=== PATIENT | female | born 1935 | race Caucasian/White ===

== ENCOUNTER 2018-12-23 14:41 | Emergency (ER) | payer MEDICARE, OTHER, MEDICAID ==
--- NOTE | 2018-12-23 15:29 | EDM.PDOC ---
ED HPI GENERAL MEDICAL PROBLEM - General Chief Complaint: Neurological Problem Stated Complaint: BRAIN BLEED Time Seen by Provider: 12/23/18 14:43 Source of Information: Reports: Patient, Family (2 daughters), RN Notes Reviewed History Limitations: Reports: Altered Mental Status (Patient confused due to dementia - she is essentially unable to contribute anything to her history) - History of Present Illness INITIAL COMMENTS - FREE TEXT/NARRATIVE: A stroke alert was called for this patient. The patient has moderate to severe dementia, and is unable to contribute to her history. Her past medical history is provided by her 2 daughters, who are at the bedside. 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 The patient was moved to [facility] in July of this year due to a diagnosis of dementia. She had been falling, but since July, the patient's frequency of falls has increased. She fell down some stairs on or about 12/13/2018 , striking her head. This past 12/19/2018, the patient became generally weak, and needed a wheelchair to be taken to the dining room. She fell Friday night, 12/20/2018, resulting in a knot to the back of her head. She fell out of bed Friday night, 12/21/2018, then twice again last night. Because of her declining condition, she was seen by her PCP yesterday. Blood work was done, and a CT scan of her head was ordered and performed today. The daughters were contacted by Ms. Hansen's office, instructing them to bring the patient to the ED, because the CT scan indicated that there was an intracranial bleed. We were notified by Ms. Hansen's office of their sending the patient to the ED, and a copy of the CT report has been faxed to us, along with the images. The CT report reads "Left parietal craniotomy changes with encephalomalacia in the left frontotemporal region. Linear area of high attenuation present in the area of encephalomalacia in the left frontal region may represent dystrophic calcifications versus blood products. Comparison with old films would be recommended. Chronic ischemic demyelination change. Soft tissue fullness, posterior right parietal region, could represent a contusion." Here in the ED, the patient has no complaints. When asked if she has a headache , she was not able to say. The patient's PCP is Katerin Hansen NP. - Related Data Allergies Allergy/AdvReac Type Severity Reaction Status Date / Time No Known Allergies Allergy Verified 12/23/18 14:59 Home Meds: Home Meds ALPRAZolam [Xanax] 1 mg PO DAILY 12/23/18 [History] Aspirin/Acetaminophen/Caffeine [Headache Relief Tablet] 2 tab PO TID 12/23/18 [ History] Calcium Carbonate/Vitamin D3 [Calcium 500+D Tablet Chew] 1 tab PO DAILY [History] Cholecalciferol (Vitamin D3) [Vitamin D3] 2,000 unit PO DAILY 12/23/18 [History] Ferrous Sulfate 325 mg PO DAILY 12/23/18 [History] Meloxicam [Mobic] 7.5 mg PO DAILY 12/23/18 [History] Menthol [Biofreeze] 1 applic TOP DAILY 12/23/18 [History] Omeprazole 20 mg PO DAILY 12/23/18 [History] Ondansetron [Zofran] 4 mg PO Q4HR PRN 12/23/18 [History] Sertraline [Zoloft] 100 mg PO DAILY 12/23/18 [History] Sulfamethoxazole/Trimethoprim [Bactrim Ds Tablet] 1 tab PO Q12H #9 tablet [Rx] Zolpidem [Ambien] 10 mg PO DAILY 12/23/18 [History] Past Medical History HEENT History: Reports: Hard of Hearing, Impaired Vision Gastrointestinal History: Reports: GERD Genitourinary History: Reports: Urinary Incontinence (stress incontinence) 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: Neurological History: Reports: Alzheimers Disease, CVA (Intracerebral hemorrhage 1996) Psychiatric History: Reports: Anxiety, Depression - Past Surgical History Head Surgeries/Procedures: Reports: Craniotomy (x 2, with cranioplasty, 1996) HEENT Surgical History: Reports: Cataract Surgery Female Surgical History: Reports: Hysterectomy (complete), Salpingo- Oophorectomy (bilateral) Social & Family History - Tobacco Use Smoking Status *Q: Current Every Day Smoker Years of Tobacco use: 50 Packs/Tins Daily: 0.2 - Alcohol Use Alcohol Use History: Yes Alcohol Use Frequency: Rarely - Recreational Drug Use Recreational Drug Use: No - Living Situation & Occupation Living situation: Reports: , Assisted Living ([facility]) Occupation: Retired ED ROS GENERAL - Review of Systems Review Of Systems: ROS reveals no pertinent complaints other than HPI. ED EXAM, GENERAL - Physical Exam Exam: See Below Exam Limited By: Other (Patient confusion - has difficulty understanding commands for neuro exam) General Appearance: Alert, WD/WN, No Apparent Distress Eye Exam: Bilateral Eye: EOMI, Other (S/P cataract surgery) Ears: Normal External Exam, Hearing Loss Nose: Normal Inspection Throat/Mouth: Normal Inspection, Normal Lips, Normal Voice, No Airway Compromise Head: Normocephalic, Other (Wellhealed scars left frontal scalp) Neck: Normal Inspection Respiratory/Chest: No Respiratory Distress, Lungs Clear, Normal Breath Sounds, No Accessory Muscle Use Cardiovascular: Normal Peripheral Pulses, Regular Rate, Rhythm, No Edema, No Gallop, No JVD, No Rub, Systolic Murmur (Grade 3/6, heard best at the apex, consistent with mitral regurgitation) Peripheral Pulses: 4+: Radial (L), Radial (R) GI/Abdominal: Normal Bowel Sounds, Soft, Non-Tender, No Organomegaly, No Distention, No Abnormal Bruit, No Mass (Female) Exam: Deferred Rectal (Female) Exam: Deferred Back Exam: Normal Inspection Extremities: Normal Inspection, Normal Range of Motion, No Pedal Edema, Normal Capillary Refill Neurological: Alert, CN II-XII Intact, Normal Cognition, No Motor/Sensory Deficits (generally weak, but no focal neurologic deficits), Confused Psychiatric: Normal Affect Skin Exam: Warm, Dry, Intact, Normal Color, No Rash EKG INTERPRETATION EKG Date: 12/23/18 Time: 14:58 Rhythm: NSR Rate (Beats/Min): 73 [place]: Normal P-Wave: Enlarged (LAE) QRS: Normal (LVH) ST-T: Normal QT: Prolonged (QTc 488 ms) Comparison: NA - No Prior EKG Course - Vital Signs Last Recorded V/S: Last Vital Signs Temp 36.1 C 12/23/18 14:55 Pulse 73 12/23/18 14:55 Resp 18 12/23/18 14:55 BP 124/64 12/23/18 14:55 Pulse Ox 92 L 12/23/18 14:55 - Orders/Labs/Meds Labs: Laboratory Tests 12/23/18 12/23/18 12/23/18 Range/Units 14:55 14:55 15:40 WBC 7.37 (3.98-10.04) K/mm3 RBC 3.79 L (3.98-5.22) M/mm3 Hgb 11.8 (11.2-15.7) gm/L Hct 37.4 (34.1-44.9) % MCV 98.7 H (79.4-94.8) fl MCH 31.1 (25.6-32.2) pg MCHC 31.6 L (32.2-35.5) g/dl RDW Std Deviation 57.0 H (36.4-46.3) fL Plt Count 271 (182-369) K/mm3 MPV 9.4 (9.4-12.3) fl Neutrophils % (Manual) 70 H (40-60) % Band Neutrophils % 0 (0-10) % Lymphocytes % (Manual) 19 L (20-40) % Atypical Lymphs % 0 % Monocytes % (Manual) 9 (2-10) % Eosinophils % (Manual) 2 (0.7-5.8) % Basophils % (Manual) 0 L (0.1-1.2) Platelet Estimate Adequate RBC Morph Comment Normal Sodium 140 (136-145) mEq/L Potassium 3.5 (3.5-5.1) mEq/L Chloride 103 (98-107) mEq/L Carbon Dioxide 24 (21-32) mEq/L Anion Gap 16.5 H (5-15) BUN 24 H (7-18) mg/dL Creatinine 1.3 H (0.55-1.02) mg/dL Est Cr Clr Drug Dosing 25.93 mL/min Estimated GFR (MDRD) 39 (>60) mL/min BUN/Creatinine Ratio 18.5 H (14-18) Glucose 143 H (83-115) mg/dL Calcium 9.4 (8.5-10.1) mg/dL Magnesium 1.9 (1.8-2.4) mg/dl Total Bilirubin 0.4 (0.2-1.0) mg/dL AST 19 (15-37) U/L ALT 15 (14-59) U/L Alkaline Phosphatase 101 (46-116) U/L Total Protein 7.6 (6.4-8.2) g/dl Albumin 3.4 (3.4-5.0) g/dl Globulin 4.2 gm/dL Albumin/Globulin Ratio 0.8 L (1-2) Urine Color Yellow (Yellow) Urine Appearance Slt cloudy H (Clear) Urine pH 6.0 (5.0-8.0) Ur Specific [place] 1.025 (1.005-1.030) Urine Protein 1+ H (Negative) Urine Glucose (UA) Negative (Negative) Urine Ketones 1+ H (Negative) Urine Occult Blood Trace-lysed H (Negative) Urine Nitrite Positive H (Negative) Urine Bilirubin 1+ H (Negative) Urine Urobilinogen 0.2 (0.2-1.0) Ur Leukocyte Esterase Trace H (Negative) Urine RBC 0-5 (0-5) /hpf Urine WBC 5-10 H (0-5) /hpf Ur Squamous Epith Cells Not seen (0-5) /hpf Amorphous Sediment Few H (NOT SEEN) /hpf Urine Bacteria Moderate H (FEW) /hpf Urine Mucus Not seen (FEW) /hpf Meds: Medications Discontinued Medications Generic Name Dose Route Start Last Admin Trade Name Freq PRN Reason Stop Dose Admin Trimethoprim/Sulfamethoxazole 1 tab 12/23/18 16:31 12/23/18 17:13 Septra Ds PO 12/23/18 16:32 1 tab ONETIME ONE Administration - Re-Assessments/Exams Free Text/Narrative Re-Assessment/Exam: 12/23/18 15:22 By the history provided by the patient's 2 daughters, the patient's dementia appears to be getting worse recently, and she is falling a lot. As per the HPI, the CT scan of the head that was performed earlier today demonstrated prior left parietal craniotomy changes with encephalomalacia in the left frontotemporal region with a linear area of high attenuation in the area of encephalomalacia that may represent dystrophic calcifications versus blood products. I reviewed the CT scan, and while the patient has had a number of falls, the changes seen on the CT scan do not appear to be consistent with recent trauma. Nevertheless, I have pushed the images to [facility], and will ask a Neurosurgeon to evaluate. In the meantime, the worsening dementia that the patient's daughters are concerned about is not something that we would expect to find an answer to on a CT scan, rather, such global changes are usually due to a metabolic abnormality , ie., delerium, not dementia. For that reason, I have ordered blood work and a urinalysis. 12/23/18 15:42 Case discussed with Jonathan at [facility] at 15:34. Case then discussed with Dr. Lowry, Neurosurgeon at [facility], at 15:40. He suggested that the patient follow-up in his clinic in about a week. At that time, he could repeat a CT scan - if the opacity is still there, then its calcification. If it's not, then it's blood. He did not recommend transfer to [facility]. 12/23/18 16:30 Although not overwhelming, the patient's urinalysis is consistent with a UTI. I have ordered a urine culture, and will start the patient on a 5-day course of oral Bactrim. 12/23/18 16:46 Test results discussed with the patient and her 2 daughters. As above, the patient appears to have a UTI. She has renal dysfunction, although I have no prior labs to compare, to see if this is new or old. Blood glucose is also elevated at 143, however, given the patient's age and comorbidities, I'm not recommending treatment for diabetes. I explained to the patient's daughters that the patient is likely suffering from progressively worsening dementia superimposed on a previously injured brain. It is possible that the patient's recent decline is due to delirium related to a UTI, however, I doubt that her mental status will improve much with Bactrim. Further evaluation could, in principle, involve neuropsychiatric evaluation. I recommended that they follow up with Ms. Hansen's office on Friday afternoon, , to check to see if the urine culture results are back, and confirm that the patient is on the correct antibiotic. Departure - Departure Time of Disposition: 16:49 Disposition: Home, Self-Care 01 Condition: Good Clinical Impression: UTI (urinary tract infection), Renal insufficiency, Hyperglycemia, Dementia, Encephalomalacia on imaging study, Abnormal CT scan of head - Discharge Information *PRESCRIPTION DRUG MONITORING PROGRAM REVIEWED*: Not Applicable *COPY OF PRESCRIPTION DRUG MONITORING REPORT IN PATIENT VINAY: Not Applicable Prescriptions: Sulfamethoxazole/Trimethoprim [Bactrim Ds Tablet] 1 tab PO Q12H #9 tablet Instructions: Hyperglycemia, [id number], Urinary Tract Infection, Adult Referrals: Katerin Hansen NP [Primary Care Provider] - Dwayne Lowry MD [Consulting Physician] - Forms: ED Department Discharge Additional Instructions: Ms. Gage was seen in the emergency room for evaluation following an abnormal CT scan performed earlier today. Workup in the ER included blood work, a urinalysis, and an ECG. The blood work found mild renal insufficiency and her blood glucose elevated at 143. The urinalysis was consistent with a urinary tract infection. A urine culture has been ordered, and Ms. Gage has been started on the antibiotic Bactrim. A prescription for a 5-day course of Bactrim has been provided. Give one tablet of Bactrim every 12 hours, starting tomorrow morning, , 12/24/2018, as prescribed. She should finish the entire prescription unless told otherwise by a doctor. We recommend that the office of Katerin Hansen be contacted Friday afternoon, 12/25, to check on the urine culture results, to make sure that she is on the correct antibiotic. The CT of the head images were pushed to [facility], and her case discussed with the Neurosurgeon Dr. Dwayne Lowry. He offered to have Ms. Gage follow-up in his office in one week, at which time a repeat CT scan would be performed, to see if any changes have occurred. If any other problems, please do not hesitate to return Ms. Gage to the ER.
[2018-12-23] MEDS ORDERED: Sulfamethoxazole/Trimethoprim 800-160 MG Tab PO ONE (16:31)
== END 2018-12-23 17:28 | disposition home or self-care (01) ==
LOC: JD.ED 14:41
DX: N39.0 Urinary tract infection, site not specified (principal); N28.9 Disorder of kidney and ureter, unspecified; R73.9 Hyperglycemia, unspecified; R93.0 Abnormal findings on diagnostic imaging of skull and head, not elsewhere classified; G93.89 Other specified disorders of brain; K21.9 Gastro-esophageal reflux disease without esophagitis; G30.9 Alzheimer's disease, unspecified; F02.80 Dementia in other diseases classified elsewhere, unspecified severity, without behavioral disturbance, psychotic disturbance, mood disturbance, and anxiety; F41.9 Anxiety disorder, unspecified; F32.9 Major depressive disorder, single episode, unspecified; Z79.899 Other long term (current) drug therapy; Z79.82 Long term (current) use of aspirin; Z86.73 Personal history of transient ischemic attack (TIA), and cerebral infarction without residual deficits
CPT/HCPCS: 36415; 80053; 81001; 83735; 85007; 85027; 87086; 87088; 87184; 87186; 93005; 99285; A9270; 93010; 99284

== ENCOUNTER 2018-12-25 16:35 | Inpatient (IN) | payer MEDICARE, OTHER, MEDICAID ==
[2018-12-25] MEDS ORDERED: Sodium Chloride 0.9% 10 ML Syringe FLUSH PRN (16:58)
[2018-12-25] MEDS ORDERED: Sodium Chloride 0.9% 1,000 ML IV SCH (17:15)
--- NOTE | 2018-12-25 17:40 | EDM.PDOC ---
ED HPI GENERAL MEDICAL PROBLEM - General Chief Complaint: General Stated Complaint: RECHECK WEAKNESS AND CONFUSION Time Seen by Provider: 12/25/18 16:54 Source of Information: Reports: Patient, EMS, Family (Daughter), RN Notes Reviewed, Other ([facility] nursing staff) - History of Present Illness INITIAL COMMENTS - FREE TEXT/NARRATIVE: 83-year-old female has been brought here by ambulance from the [facility] for evaluation of worsening confusion, difficulty walking, multiple falls over the past week. She now is reported to have fallen at least 4 times in the last 5 days. She was sent here to the ED 2 days ago after one of her falls, found to have a UTI, started on a 5 day course of Bactrim and also found to have changes on her head CT demonstrating prior left parietal craniotomy changes with encephalomalacia in the left frontotemporal region with a linear area of high attenuation in the area of encephalomalacia that may represent dystrophic calcifications versus blood products. Dr. Ulrich , ED Phys. on duty at that time did discuss this with Dr. Lowry,Neurosurgeon at [facility] who suggested the patient follow up at his clinic in about one week. After being released back to the [facility] she has had more falls with the last reported fall earlier today. The been primarily in her room where she will be found lying on the floor of her room. With her worsening confusion and dementia she is unable to give any history about these falls. She does at this time deny headache, neck back chest or abdominal pain. She is reported to have past medical history of GERD, anxiety , depression, CVA, Alzheimer's disease and recent UTI. - Related Data Allergies Allergy/AdvReac Type Severity Reaction Status Date / Time No Known Allergies Allergy Verified 12/23/18 14:59 Home Meds: Home Meds ALPRAZolam [Xanax] 1 mg PO DAILY 12/23/18 [History] Aspirin/Acetaminophen/Caffeine [Headache Relief Tablet] 2 tab PO TID 12/23/18 [ History] Calcium Carbonate/Vitamin D3 [Calcium 500+D Tablet Chew] 1 tab PO DAILY [History] Cholecalciferol (Vitamin D3) [Vitamin D3] 2,000 unit PO DAILY 12/23/18 [History] Ferrous Sulfate 325 mg PO DAILY 12/23/18 [History] Meloxicam [Mobic] 7.5 mg PO DAILY 12/23/18 [History] Menthol [Biofreeze] 1 applic TOP DAILY 12/23/18 [History] Omeprazole 20 mg PO DAILY 12/23/18 [History] Ondansetron [Zofran] 4 mg PO Q4HR PRN 12/23/18 [History] Sertraline [Zoloft] 100 mg PO DAILY 12/23/18 [History] Sulfamethoxazole/Trimethoprim [Bactrim Ds Tablet] 1 tab PO Q12H #9 tablet [Rx] Zolpidem [Ambien] 10 mg PO DAILY 12/23/18 [History] Past Medical History HEENT History: Reports: Hard of Hearing, Impaired Vision Gastrointestinal History: Reports: GERD 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 Other Musculoskeletal Surgeries/Procedures:: Weakness, arthralgia Social & Family History - Tobacco Use Smoking Status *Q: Never Smoker Second Hand Smoke Exposure: No - Caffeine Use Caffeine Use: Reports: Coffee - Recreational Drug Use Recreational Drug Use: No ED ROS GENERAL - Review of Systems Review Of Systems: See Below Constitutional: Denies: Fever HEENT: Reports: No Symptoms Respiratory: Denies: Shortness of Breath, Cough Cardiovascular: Denies: Chest Pain GI/Abdominal: Denies: Abdominal Pain, Vomiting Musculoskeletal: Denies: Neck Pain, Back Pain Skin: Reports: Bruising Neurological: Reports: Dizziness, Difficulty Walking. Denies: Trouble Speaking ED EXAM, GENERAL - Physical Exam Exam: See Below General Appearance: Alert, No Apparent Distress, Other (Confused, no apparent distress at this time) Eye Exam: Bilateral Eye: PERRL Ears: Normal External Exam Throat/Mouth: Normal Inspection, Normal Oropharynx Head: Other (There is an area of bruising posterior scalp, no visible swelling at this time) Neck: Supple, Non-Tender Respiratory/Chest: No Respiratory Distress, Lungs Clear, Normal Breath Sounds Cardiovascular: Regular Rate, Rhythm GI/Abdominal: Soft, Non-Tender Back Exam: No: CVA Tenderness (L), CVA Tenderness (R) Extremities: Normal Inspection, Normal Range of Motion. No: Pedal Edema Neurological: Alert, No Motor/Sensory Deficits (Confused, cooperative with exam , does follow simple commands), Other Skin Exam: Warm, Dry, Normal Color EKG INTERPRETATION EKG Date: 12/25/18 Rhythm: NSR [place]: Normal P-Wave: Present QRS: Normal ST-T: Normal QT: Prolonged Course - Vital Signs Last Recorded V/S: Last Vital Signs Temp 97.5 F 12/25/18 17:00 Pulse 63 12/25/18 17:00 Resp 20 12/25/18 17:00 BP 141/74 H 12/25/18 17:00 Pulse Ox 93 L 12/25/18 17:00 - Orders/Labs/Meds Orders: Active Orders 24 hr Category Date Time Status Admission Status [Patient Status] [ADT] Routine ADT 12/25/18 18:49 Active EKG 12 Lead [EKG Documentation Completion] [RC] STAT Care 12/25/18 16:58 Active Peripheral IV Care [RC] . DIRECTED Care 12/25/18 16:59 Active Sodium Chloride 0.9% [Normal Saline] 1,000 ml Med 12/25/18 17:15 Active IV ASDIRECTED Sodium Chloride 0.9% [Saline Flush] Med 12/25/18 16:58 Active 10 ml FLUSH ASDIRECTED PRN cefTRIAXone [Rocephin] 1 gm Med 12/25/18 18:51 Ordered Sodium Chloride 0.9% [Normal Saline] 100 ml IV ONETIME Peripheral IV Insertion Adult [OM.PC] Stat Oth 12/25/18 16:59 Ordered Medication Orders Sodium Chloride (Normal Saline) 1,000 mls @ 150 mls/hr IV ASDIRECTED GUADALUPE Last Admin: 12/25/18 17:33 Dose: 150 mls/hr Ceftriaxone Sodium 1 gm/ (Sodium Chloride) 100 mls @ 200 mls/hr IV ONETIME ONE Stop: 12/25/18 19:20 Sodium Chloride (Saline Flush) 10 ml FLUSH ASDIRECTED PRN PRN Reason: Keep Vein Open Last Admin: 12/25/18 17:33 Dose: 10 ml Labs: Laboratory Tests 12/25/18 12/25/18 12/25/18 Range/Units 17:35 17:35 18:30 WBC 5.84 (3.98-10.04) K/mm3 RBC 3.59 L (3.98-5.22) M/mm3 Hgb 10.9 L (11.2-15.7) gm/L Hct 35.1 (34.1-44.9) % MCV 97.8 H (79.4-94.8) fl MCH 30.4 (25.6-32.2) pg MCHC 31.1 L (32.2-35.5) g/dl RDW Std Deviation 55.6 H (36.4-46.3) fL Plt Count 248 (182-369) K/mm3 MPV 9.0 L (9.4-12.3) fl Neut % (Auto) 65.6 (34.0-71.1) % Lymph % (Auto) 22.6 (19.3-51.7) % [place] % (Auto) 9.9 (4.7-12.5) % Eos % (Auto) 1.4 (0.7-5.8) Baso % (Auto) 0.3 (0.1-1.2) % Neut # (Auto) 3.83 (1.56-6.13) K/mm3 Lymph # (Auto) 1.32 (1.18-3.74) K/mm3 [place] # (Auto) 0.58 H (0.24-0.36) K/mm3 Eos # (Auto) 0.08 (0.04-0.36) K/mm3 Baso # (Auto) 0.02 (0.01-0.08) K/mm3 Sodium 139 (136-145) mEq/L Potassium 3.2 L (3.5-5.1) mEq/L Chloride 102 (98-107) mEq/L Carbon Dioxide 25 (21-32) mEq/L Anion Gap 15.2 H (5-15) BUN 25 H (7-18) mg/dL Creatinine 1.5 H (0.55-1.02) mg/dL Est Cr Clr Drug Dosing 23.51 mL/min Estimated GFR (MDRD) 33 (>60) mL/min BUN/Creatinine Ratio 16.7 (14-18) Glucose 95 (83-115) mg/dL Calcium 9.2 (8.5-10.1) mg/dL Total Bilirubin 0.2 (0.2-1.0) mg/dL AST 24 (15-37) U/L ALT 16 (14-59) U/L Alkaline Phosphatase 86 (46-116) U/L Troponin I 0.033 (0.00-0.056) ng/mL Total Protein 7.4 (6.4-8.2) g/dl Albumin 3.3 L (3.4-5.0) g/dl Globulin 4.1 gm/dL Albumin/Globulin Ratio 0.8 L (1-2) Urine Color Yellow (Yellow) Urine Appearance Clear (Clear) Urine pH 7.0 (5.0-8.0) Ur Specific [place] 1.020 (1.005-1.030) Urine Protein 1+ H (Negative) Urine Glucose (UA) Negative (Negative) Urine Ketones Negative (Negative) Urine Occult Blood Trace-lysed H (Negative) Urine Nitrite Positive H (Negative) Urine Bilirubin Negative (Negative) Urine Urobilinogen 0.2 (0.2-1.0) Ur Leukocyte Esterase Trace H (Negative) Urine RBC 5-10 H (0-5) /hpf Urine WBC 10-20 H (0-5) /hpf Ur Epithelial Cells 0-5 (0-5) /hpf Amorphous Sediment Few H (NOT SEEN) /hpf Urine Bacteria Many H (FEW) /hpf Urine Mucus Not seen (FEW) /hpf Meds: Medications Generic Name Dose Route Start Last Admin Trade Name Freq PRN Reason Stop Dose Admin Sodium Chloride 1,000 mls @ 150 mls/hr 12/25/18 17:15 12/25/18 17:33 Normal Saline IV 150 mls/hr ASDIRECTED GUADALUPE Administration Ceftriaxone Sodium 1 gm/ 100 mls @ 200 mls/hr 12/25/18 18:51 Sodium Chloride IV 12/25/18 19:20 ONETIME ONE Sodium Chloride 10 ml 12/25/18 16:58 12/25/18 17:33 Saline Flush FLUSH 10 ml ASDIRECTED PRN Administration Keep Vein Open - Re-Assessments/Exams Free Text/Narrative Re-Assessment/Exam: 12/25/18 18:53, Ua still positive for UTI with 10-20 WBC's, moderate bacteria as well. I did check on the culture of 2 days ago which is reported to be growing e coli. Have ordered Rocephin 1 g IV. Will admit for further treatment and also for patient safety. She is going to need fci placement. It is now early Friday evening and that will not occur today or until Friday at the earliest. It is totally unsafe for her to go back to the [facility] where she is required to be at least somewhat independent. Departure - Departure Time of Disposition: 18:52 Disposition: Admitted As Inpatient 66 Condition: Fair Clinical Impression: Multiple falls, Difficulty walking UTI (urinary tract infection) Qualifiers: Encounter type: initial encounter Dementia Qualifiers: Dementia type: Alzheimer's disease Alzheimer's disease onset: unspecified onset - Discharge Information Referrals: Katerin Hansen NP [Primary Care Provider] - Forms: ED Department Discharge ED Communication - Discussed Case With (1) Discussed Case With (1): Admitting Provider (Dr Jacobson, decision to admit at about 18:50.) - My Orders Last 24 Hours: My Active Orders 12/25/18 16:58 EKG 12 Lead [EKG Documentation Completion] [RC] STAT Sodium Chloride 0.9% [Saline Flush] 10 ml FLUSH ASDIRECTED PRN 12/25/18 16:59 Peripheral IV Care [RC] . DIRECTED Peripheral IV Insertion Adult [OM.PC] Stat 12/25/18 17:15 Sodium Chloride 0.9% [Normal Saline] 1,000 ml IV ASDIRECTED 12/25/18 18:49 Admission Status [Patient Status] [ADT] Routine 12/25/18 18:51 cefTRIAXone [Rocephin] 1 gm Sodium Chloride 0.9% [Normal Saline] 100 ml IV ONETIME - Assessment/Plan Last 24 Hours: My Active Orders 12/25/18 16:58 EKG 12 Lead [EKG Documentation Completion] [RC] STAT Sodium Chloride 0.9% [Saline Flush] 10 ml FLUSH ASDIRECTED PRN 12/25/18 16:59 Peripheral IV Care [RC] . DIRECTED Peripheral IV Insertion Adult [OM.PC] Stat 12/25/18 17:15 Sodium Chloride 0.9% [Normal Saline] 1,000 ml IV ASDIRECTED 12/25/18 18:49 Admission Status [Patient Status] [ADT] Routine 12/25/18 18:51 cefTRIAXone [Rocephin] 1 gm Sodium Chloride 0.9% [Normal Saline] 100 ml IV ONETIME
--- NOTE | 2018-12-25 18:48 | CT ---
Head CT Technique: Multiple axial sections through the brain were obtained. Intravenous contrast was not utilized. Comparison: Prior head CT study of 12/23/18. Findings: Ventricles along with basal cisterns and sulci over the convexities are prominent. Areas of encephalomalacia are noted within the left frontal region as well as left temporal region with adjacent craniotomy. Small high density area within the mid left frontal area of encephalomalacia is seen which is stable from prior head CT study and is felt to be incidental. Diminished density is noted within the periventricular and subcortical white matter as well as basal ganglia which is compatible small vessel ischemic demyelination change. Old lacunar infarct is noted within the left thalamus. No evidence of intracranial hemorrhage. No midline shift or mass effect is seen. Atherosclerotic calcification is seen within the vertebral vessels and carotid siphon. Bone window settings were reviewed which shows no acute calvarial abnormality. Slight soft tissue swelling is seen within the upper right posterior scalp which is stable from prior head CT. Impression: 1. Areas of encephalomalacia with overlying craniotomy which appears old. 2. Generalized atrophy and small vessel ischemic demyelination changes as well as old lacunar infarct as noted above. 3. Other senescent change as noted above. Nothing acute is appreciated. Diagnostic code #2
[2018-12-25] MEDS ORDERED: cefTRIAXone 1 GM in Sodium Chloride 0.9% 100 ML IV ONE (18:51)
--- NOTE | 2018-12-25 19:28 | PCM.HP ---
H&P History of Present Illness - General Date of Service: 12/25/18 Admit Problem/Dx: Admission Diagnosis/Problem Admission Diagnosis/Problem Urinary tract infection - History of Present Illness Initial Comments - Free Text/Narative: 83 yo WF with h/o dementia admitted after was brought to ED from assisted living facility with frequent falls, functional decline and recently diagnosed UTI. - Related Data Allergies/Adverse Reactions: Allergies Allergy/AdvReac Type Severity Reaction Status Date / Time memantine Allergy Other Verified 12/25/18 19:05 mirtazapine [From Remeron] Allergy Confusion Verified 12/25/18 19:05 Home Medications: Home Meds ALPRAZolam [Xanax] 1 mg PO BEDTIME 12/23/18 [History] Aspirin/Acetaminophen/Caffeine [Headache Relief Tablet] 2 tab PO TID 12/23/18 [ History] Calcium Carbonate/Vitamin D3 [Calcium 500+D Tablet Chew] 1 tab PO DAILY [History] Cholecalciferol (Vitamin D3) [Vitamin D3] 2,000 unit PO DAILY 12/23/18 [History] Ferrous Sulfate 325 mg PO DAILY 12/23/18 [History] Meloxicam [Mobic] 7.5 mg PO DAILY 12/23/18 [History] Menthol [Biofreeze] 1 applic TOP DAILY PRN 12/23/18 [History] Omeprazole 20 mg PO DAILY 12/23/18 [History] Ondansetron [Zofran] 4 mg PO Q4HR PRN 12/23/18 [History] Sertraline [Zoloft] 100 mg PO DAILY 12/23/18 [History] Sulfamethoxazole/Trimethoprim [Bactrim Ds Tablet] 1 tab PO Q12H #9 tablet [Rx] Zolpidem [Ambien] 10 mg PO BEDTIME PRN 12/23/18 [History] Sodium Chloride 5% [Dorian 128 5% Ophth Soln] 1 drop EYEBOTH BID 12/25/18 [History ] Past Medical History HEENT History: Reports: Hard of Hearing, Impaired Vision Gastrointestinal History: Reports: GERD 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 Other Musculoskeletal Surgeries/Procedures:: Weakness, arthralgia Social & Family History - Tobacco Use Smoking Status *Q: Never Smoker Second Hand Smoke Exposure: No - Caffeine Use Caffeine Use: Reports: Coffee - Recreational Drug Use Recreational Drug Use: No H&P Review of Systems - Review of Systems: Review Of Systems: Unable To Obtain Exam - Exam Exam: See Below - Vital Signs Vital Signs: Last Vital Signs Temp 97.5 F 12/25/18 17:00 Pulse 63 12/25/18 17:00 Resp 20 12/25/18 17:00 BP 141/74 H 12/25/18 17:00 Pulse Ox 93 L 12/25/18 17:00 Weight: 122 lb - Exam Quality Assessment: No: Supplemental Oxygen General: Alert, Cooperative. No: Oriented HEENT: Conjunctiva Clear, EOMI, Pupils Reactive Neck: Supple, Trachea Midline. No: JVD Lungs: Clear to Auscultation, Normal Respiratory Effort Cardiovascular: Regular Rate, Regular Rhythm, Systolic Murmur GI/Abdominal Exam: Normal Bowel Sounds, Soft, Non-Tender, No Organomegaly Extremities: No Pedal Edema. No: Joint Swelling Peripheral Pulses: 1+: Dorsalis Pedis (L), Dorsalis Pedis (R) Skin: Warm, Dry Neurological: Cranial Nerves Intact Neuro Extensive - Mental Status: Disorientation to Place, Disorientation to Time , Memory Loss-Recent Events, Slow Response to Commands Neuro Extensive - Motor, Sensory, Reflexes: No: Motor/Sensory Deficits - Patient Data Lab Results Last 24 hrs: Laboratory Results - last 24 hr 12/25/18 12/25/18 12/25/18 Range/Units 17:35 17:35 18:30 WBC 5.84 (3.98-10.04) K/mm3 RBC 3.59 L (3.98-5.22) M/mm3 Hgb 10.9 L (11.2-15.7) gm/L Hct 35.1 (34.1-44.9) % MCV 97.8 H (79.4-94.8) fl MCH 30.4 (25.6-32.2) pg MCHC 31.1 L (32.2-35.5) g/dl RDW Std Deviation 55.6 H (36.4-46.3) fL Plt Count 248 (182-369) K/mm3 MPV 9.0 L (9.4-12.3) fl Neut % (Auto) 65.6 (34.0-71.1) % Lymph % (Auto) 22.6 (19.3-51.7) % [place] % (Auto) 9.9 (4.7-12.5) % Eos % (Auto) 1.4 (0.7-5.8) Baso % (Auto) 0.3 (0.1-1.2) % Neut # (Auto) 3.83 (1.56-6.13) K/mm3 Lymph # (Auto) 1.32 (1.18-3.74) K/mm3 [place] # (Auto) 0.58 H (0.24-0.36) K/mm3 Eos # (Auto) 0.08 (0.04-0.36) K/mm3 Baso # (Auto) 0.02 (0.01-0.08) K/mm3 Sodium 139 (136-145) mEq/L Potassium 3.2 L (3.5-5.1) mEq/L Chloride 102 (98-107) mEq/L Carbon Dioxide 25 (21-32) mEq/L Anion Gap 15.2 H (5-15) BUN 25 H (7-18) mg/dL Creatinine 1.5 H (0.55-1.02) mg/dL Est Cr Clr Drug Dosing 23.51 mL/min Estimated GFR (MDRD) 33 (>60) mL/min BUN/Creatinine Ratio 16.7 (14-18) Glucose 95 (83-115) mg/dL Calcium 9.2 (8.5-10.1) mg/dL Total Bilirubin 0.2 (0.2-1.0) mg/dL AST 24 (15-37) U/L ALT 16 (14-59) U/L Alkaline Phosphatase 86 (46-116) U/L Troponin I 0.033 (0.00-0.056) ng/mL Total Protein 7.4 (6.4-8.2) g/dl Albumin 3.3 L (3.4-5.0) g/dl Globulin 4.1 gm/dL Albumin/Globulin Ratio 0.8 L (1-2) Urine Color Yellow (Yellow) Urine Appearance Clear (Clear) Urine pH 7.0 (5.0-8.0) Ur Specific [place] 1.020 (1.005-1.030) Urine Protein 1+ H (Negative) Urine Glucose (UA) Negative (Negative) Urine Ketones Negative (Negative) Urine Occult Blood Trace-lysed H (Negative) Urine Nitrite Positive H (Negative) Urine Bilirubin Negative (Negative) Urine Urobilinogen 0.2 (0.2-1.0) Ur Leukocyte Esterase Trace H (Negative) Urine RBC 5-10 H (0-5) /hpf Urine WBC 10-20 H (0-5) /hpf Ur Epithelial Cells 0-5 (0-5) /hpf Amorphous Sediment Few H (NOT SEEN) /hpf Urine Bacteria Many H (FEW) /hpf Urine Mucus Not seen (FEW) /hpf Result Diagrams: 12/25/18 17:35 12/25/18 17:35 - Problem List (1) UTI (urinary tract infection) SNOMED Code(s): 77080447 ICD Code: N39.0 - URINARY TRACT INFECTION, SITE NOT SPECIFIED Status: Acute Current Visit: Yes Qualifiers: Encounter type: initial encounter (2) Dementia SNOMED Code(s): 93962330 ICD Code: F03.90 - UNSPECIFIED DEMENTIA WITHOUT BEHAVIORAL DISTURBANCE Status: Acute Current Visit: Yes Qualifiers: Dementia type: Alzheimer's disease Alzheimer's disease onset: unspecified onset Problem List Initiated/Reviewed/Updated: Yes Orders Last 24hrs: Active Orders 24 hr Category Date Time Status Admission Status [Patient Status] [ADT] Routine ADT 12/25/18 18:49 Active Bedrest Bedside Commode [RC] ASDIRECTED Care 12/25/18 19:09 Ordered EKG 12 Lead [EKG Documentation Completion] [RC] STAT Care 12/25/18 16:58 Active Height and Weight [RC] DAILY Care 12/25/18 19:09 Ordered Intake and Output [RC] QSHIFT Care 12/25/18 19:10 Ordered Oxygen Therapy [RC] PRN Care 12/25/18 19:09 Ordered Peripheral IV Care [RC] . DIRECTED Care 12/25/18 16:59 Active VTE/DVT Education [RC] PER UNIT ROUTINE Care 12/25/18 19:09 Ordered Vital Signs [RC] Q4H Care 12/25/18 19:09 Ordered Regular Diet [DIET] Diet 12/25/18 Breakfast Ordered CBC WITH AUTO DIFF [HEME] AM Lab 12/26/18 05:11 Ordered COMPREHENSIVE METABOLIC PN,CMP [CHEM] AM Lab 12/26/18 05:11 Ordered CREATINE KINASE,CK [CHEM] AM Lab 12/26/18 05:11 Ordered GLYCOSYLATED HEMOGLOBIN,HGBA1C [CHEM] AM Lab 12/26/18 05:11 Ordered INR,PT,PROTHROMBIN TIME [COAG] AM Lab 12/26/18 05:11 Ordered LACTIC ACID [CHEM] AM Lab 12/26/18 05:11 Ordered LIPASE [CHEM] AM Lab 12/26/18 05:11 Ordered LIPID PANEL [CHEM] AM Lab 12/26/18 05:11 Ordered MAGNESIUM [CHEM] AM Lab 12/26/18 05:00 Ordered PHOSPHORUS [CHEM] AM Lab 12/26/18 05:00 Ordered PRO B-TYPE NATRIUR PEPT,BNPPRO [CHEM] AM Lab 12/26/18 05:11 Ordered PTT,PARTIAL THROMBOPLSTIN TIME [COAG] AM Lab 12/26/18 05:11 Ordered TROPONIN I [CHEM] AM Lab 12/26/18 05:11 Ordered TSH [CHEM] AM Lab 12/26/18 05:11 Ordered Dextrose 5%-Normal Saline @ 125 MLS/HR(1000ml) Med 12/25/18 19:15 Ordered Dextrose 5%-0.9% NaCl [Dextrose 5%-Normal Saline] 1,000 ml IV ASDIRECTED Enoxaparin [Lovenox] Med 12/25/18 19:15 Ordered 30 mg SUBCUT DAILY Sertraline Med 12/26/18 09:00 Ordered 100 mg PO DAILY Sodium Chloride 0.9% [Normal Saline] 1,000 ml Med 12/25/18 17:15 Active IV ASDIRECTED Sodium Chloride 0.9% [Saline Flush] Med 12/25/18 16:58 Active 10 ml FLUSH ASDIRECTED PRN Sodium Chloride 5% Med 12/25/18 21:00 Ordered 1 drop EYEBOTH BID Peripheral IV Insertion Adult [OM.PC] Stat Oth 12/25/18 16:59 Ordered Resuscitation Status Routine Resus Stat 12/25/18 19:09 Ordered Medication Orders Enoxaparin Sodium (Lovenox) 30 mg SUBCUT DAILY [place] Sodium Chloride (Normal Saline) 1,000 mls @ 150 mls/hr IV ASDIRECTED [place] Last Admin: 12/25/18 17:33 Dose: 150 mls/hr Dextrose/Sodium Chloride (Dextrose 5%-Normal Saline) 1,000 mls @ 125 mls/hr IV ASDIRECTED [place] Non-Formulary Medication (Sodium Chloride 5%) 1 drop EYEBOTH BID [place] Sertraline HCl (Zoloft) 100 mg PO DAILY [place] Sodium Chloride (Saline Flush) 10 ml FLUSH ASDIRECTED PRN PRN Reason: Keep Vein Open Last Admin: 12/25/18 17:33 Dose: 10 ml Assessment/Plan Comment:: 1. IVF, abx, pending cultures. 2. PT/OT eval. 3. Nutrition supplements. 4. Screen with TSH. 5. SNF placement.
[2018-12-25] MEDS ORDERED: Levofloxacin/Dextrose 5%-Water 500 MG in Premix Bag 1 BAG IV ONE (19:30)
[2018-12-25] MEDS: Dextrose 5%-0.9% NaCl 1,000 ML IV SCH (20:46)
[2018-12-25] MEDS: Enoxaparin 30 MG/0.3 ML Syringe SUBCUT SCH (20:47)
[2018-12-26] MEDS: Dextrose 5%-0.9% NaCl 1,000 ML IV SCH ×2 (05:50→17:20)
[2018-12-26 08:37] LABS: HEMOGLOBIN A1C 5.2 % (4.50-6.20)
[2018-12-26] MEDS: Enoxaparin 30 MG/0.3 ML Syringe SUBCUT SCH (09:30)
[2018-12-26] MEDS: Sertraline 50 MG Tab PO SCH (09:30)
[2018-12-26] MEDS: SODIUM CHLORIDE 5% EYEBOTH SCH ×3 (09:31→21:06)
[2018-12-26] MEDS ORDERED: Magnesium Sulfate/Water 2 GM in Premix Bag 1 BAG IV ONE (10:01)
[2018-12-26] MEDS ORDERED: Potassium Chloride 10% 20 MEQ/15 ML Soln 15 ML UD Cup PO ONE (10:01)
[2018-12-26] MEDS: Ondansetron 4 MG/2 ML SDV IVPUSH PRN ×2 (10:48→20:02)
--- NOTE | 2018-12-26 13:07 | PCM.PN ---
- General Info Date of Service: 12/26/18 Admission Dx/Problem (Free Text): 83 yo WF with h/o dementia admitted after was brought to ED from assisted living facility with frequent falls, functional decline and recently diagnosed UTI. 12/26/2018, poor night sleep, will add home zolpidem at lower dose, reports esophageal dysphagia, has h/o strictures and dilation, not made a decision to address on this admission. Will involve surgery if decision is made. Poor nutrition, added supplements. - Review of Systems Systems Review Comment:: unable to obtain - Patient Data Vitals - Most Recent: Last Vital Signs Temp 98.1 F 12/26/18 12:07 Pulse 64 12/26/18 12:07 Resp 16 12/26/18 12:07 BP 138/65 12/26/18 12:07 Pulse Ox 90 L 12/26/18 12:07 Weight - Most Recent: 121 lb I&O - Last 24 Hours: Intake & Output 12/26/18 12/26/18 12/26/18 03:59 11:59 19:59 Intake Total 1150 Output Total 550 Balance 600 Lab Results Last 24 Hours: Laboratory Results - last 24 hr 12/25/18 12/25/18 12/25/18 Range/Units 17:35 17:35 18:30 WBC 5.84 (3.98-10.04) K/mm3 RBC 3.59 L (3.98-5.22) M/mm3 Hgb 10.9 L (11.2-15.7) gm/L Hct 35.1 (34.1-44.9) % MCV 97.8 H (79.4-94.8) fl MCH 30.4 (25.6-32.2) pg MCHC 31.1 L (32.2-35.5) g/dl RDW Std Deviation 55.6 H (36.4-46.3) fL Plt Count 248 (182-369) K/mm3 MPV 9.0 L (9.4-12.3) fl Neut % (Auto) 65.6 (34.0-71.1) % Lymph % (Auto) 22.6 (19.3-51.7) % [place] % (Auto) 9.9 (4.7-12.5) % Eos % (Auto) 1.4 (0.7-5.8) Baso % (Auto) 0.3 (0.1-1.2) % Neut # (Auto) 3.83 (1.56-6.13) K/mm3 Lymph # (Auto) 1.32 (1.18-3.74) K/mm3 [place] # (Auto) 0.58 H (0.24-0.36) K/mm3 Eos # (Auto) 0.08 (0.04-0.36) K/mm3 Baso # (Auto) 0.02 (0.01-0.08) K/mm3 PT (9.5-12.1) SECONDS INR APTT (24-31) SECONDS Sodium 139 (136-145) mEq/L Potassium 3.2 L (3.5-5.1) mEq/L Chloride 102 (98-107) mEq/L Carbon Dioxide 25 (21-32) mEq/L Anion Gap 15.2 H (5-15) BUN 25 H (7-18) mg/dL Creatinine 1.5 H (0.55-1.02) mg/dL Est Cr Clr Drug Dosing 23.51 mL/min Estimated GFR (MDRD) 33 (>60) mL/min BUN/Creatinine Ratio 16.7 (14-18) Glucose 95 (83-115) mg/dL Hemoglobin A1c (4.50-6.20) % Lactic Acid (0.4-2.0) mmol/L Calcium 9.2 (8.5-10.1) mg/dL Phosphorus (2.6-4.7) mg/dL Magnesium (1.8-2.4) mg/dl Total Bilirubin 0.2 (0.2-1.0) mg/dL AST 24 (15-37) U/L ALT 16 (14-59) U/L Alkaline Phosphatase 86 (46-116) U/L Creatine Kinase (26-192) U/L Troponin I 0.033 (0.00-0.056) ng/mL NT-Pro-B Natriuret Pep (0-450) pg/mL Total Protein 7.4 (6.4-8.2) g/dl Albumin 3.3 L (3.4-5.0) g/dl Globulin 4.1 gm/dL Albumin/Globulin Ratio 0.8 L (1-2) Triglycerides (<150) mg/dL Cholesterol (<200) mg/dL LDL Cholesterol Direct (<100) mg/dL HDL Cholesterol (40-59) mg/dL Lipase (73-393) U/L TSH 3rd Generation (0.358-3.74) uIU/mL Urine Color Yellow (Yellow) Urine Appearance Clear (Clear) Urine pH 7.0 (5.0-8.0) Ur Specific [place] 1.020 (1.005-1.030) Urine Protein 1+ H (Negative) Urine Glucose (UA) Negative (Negative) Urine Ketones Negative (Negative) Urine Occult Blood Trace-lysed H (Negative) Urine Nitrite Positive H (Negative) Urine Bilirubin Negative (Negative) Urine Urobilinogen 0.2 (0.2-1.0) Ur Leukocyte Esterase Trace H (Negative) Urine RBC 5-10 H (0-5) /hpf Urine WBC 10-20 H (0-5) /hpf Ur Epithelial Cells 0-5 (0-5) /hpf Amorphous Sediment Few H (NOT SEEN) /hpf Urine Bacteria Many H (FEW) /hpf Urine Mucus Not seen (FEW) /hpf MRSA (PCR) 12/25/18 12/26/18 12/26/18 Range/Units 20:24 05:08 05:08 WBC 5.57 (3.98-10.04) K/mm3 RBC 3.59 L (3.98-5.22) M/mm3 Hgb 11.0 L (11.2-15.7) gm/L Hct 34.8 (34.1-44.9) % MCV 96.9 H (79.4-94.8) fl MCH 30.6 (25.6-32.2) pg MCHC 31.6 L (32.2-35.5) g/dl RDW Std Deviation 54.7 H (36.4-46.3) fL Plt Count 253 (182-369) K/mm3 MPV 9.4 (9.4-12.3) fl Neut % (Auto) 73.2 H (34.0-71.1) % Lymph % (Auto) 15.6 L (19.3-51.7) % [place] % (Auto) 10.1 (4.7-12.5) % Eos % (Auto) 0.7 (0.7-5.8) Baso % (Auto) 0.2 (0.1-1.2) % Neut # (Auto) 4.08 (1.56-6.13) K/mm3 Lymph # (Auto) 0.87 L (1.18-3.74) K/mm3 [place] # (Auto) 0.56 H (0.24-0.36) K/mm3 Eos # (Auto) 0.04 (0.04-0.36) K/mm3 Baso # (Auto) 0.01 (0.01-0.08) K/mm3 PT (9.5-12.1) SECONDS INR APTT (24-31) SECONDS Sodium (136-145) mEq/L Potassium (3.5-5.1) mEq/L Chloride (98-107) mEq/L Carbon Dioxide (21-32) mEq/L Anion Gap (5-15) BUN (7-18) mg/dL Creatinine (0.55-1.02) mg/dL Est Cr Clr Drug Dosing mL/min Estimated GFR (MDRD) (>60) mL/min BUN/Creatinine Ratio (14-18) Glucose (83-115) mg/dL Hemoglobin A1c (4.50-6.20) % Lactic Acid (0.4-2.0) mmol/L Calcium (8.5-10.1) mg/dL Phosphorus 2.7 (2.6-4.7) mg/dL Magnesium 1.6 L (1.8-2.4) mg/dl Total Bilirubin (0.2-1.0) mg/dL AST (15-37) U/L ALT (14-59) U/L Alkaline Phosphatase (46-116) U/L Creatine Kinase (26-192) U/L Troponin I (0.00-0.056) ng/mL NT-Pro-B Natriuret Pep (0-450) pg/mL Total Protein (6.4-8.2) g/dl Albumin (3.4-5.0) g/dl Globulin gm/dL Albumin/Globulin Ratio (1-2) Triglycerides (<150) mg/dL Cholesterol (<200) mg/dL LDL Cholesterol Direct (<100) mg/dL HDL Cholesterol (40-59) mg/dL Lipase (73-393) U/L TSH 3rd Generation (0.358-3.74) uIU/mL Urine Color (Yellow) Urine Appearance (Clear) Urine pH (5.0-8.0) Ur Specific [place] (1.005-1.030) Urine Protein (Negative) Urine Glucose (UA) (Negative) Urine Ketones (Negative) Urine Occult Blood (Negative) Urine Nitrite (Negative) Urine Bilirubin (Negative) Urine Urobilinogen (0.2-1.0) Ur Leukocyte Esterase (Negative) Urine RBC (0-5) /hpf Urine WBC (0-5) /hpf Ur Epithelial Cells (0-5) /hpf Amorphous Sediment (NOT SEEN) /hpf Urine Bacteria (FEW) /hpf Urine Mucus (FEW) /hpf MRSA (PCR) Negative 12/26/18 12/26/18 12/26/18 Range/Units 05:08 05:08 05:08 WBC (3.98-10.04) K/mm3 RBC (3.98-5.22) M/mm3 Hgb (11.2-15.7) gm/L Hct (34.1-44.9) % MCV (79.4-94.8) fl MCH (25.6-32.2) pg MCHC (32.2-35.5) g/dl RDW Std Deviation (36.4-46.3) fL Plt Count (182-369) K/mm3 MPV (9.4-12.3) fl Neut % (Auto) (34.0-71.1) % Lymph % (Auto) (19.3-51.7) % [place] % (Auto) (4.7-12.5) % Eos % (Auto) (0.7-5.8) Baso % (Auto) (0.1-1.2) % Neut # (Auto) (1.56-6.13) K/mm3 Lymph # (Auto) (1.18-3.74) K/mm3 [place] # (Auto) (0.24-0.36) K/mm3 Eos # (Auto) (0.04-0.36) K/mm3 Baso # (Auto) (0.01-0.08) K/mm3 PT 11.5 (9.5-12.1) SECONDS INR 1.06 APTT 31 (24-31) SECONDS Sodium 140 (136-145) mEq/L Potassium 3.0 L (3.5-5.1) mEq/L Chloride 102 (98-107) mEq/L Carbon Dioxide 23 (21-32) mEq/L Anion Gap 18.0 H (5-15) BUN 15 (7-18) mg/dL Creatinine 1.2 H (0.55-1.02) mg/dL Est Cr Clr Drug Dosing 28.09 mL/min Estimated GFR (MDRD) 43 (>60) mL/min BUN/Creatinine Ratio 12.5 L (14-18) Glucose 168 H (83-115) mg/dL Hemoglobin A1c (4.50-6.20) % Lactic Acid (0.4-2.0) mmol/L Calcium 8.9 (8.5-10.1) mg/dL Phosphorus (2.6-4.7) mg/dL Magnesium (1.8-2.4) mg/dl Total Bilirubin 0.2 (0.2-1.0) mg/dL AST 21 (15-37) U/L ALT 15 (14-59) U/L Alkaline Phosphatase 81 (46-116) U/L Creatine Kinase 176 (26-192) U/L Troponin I 0.052 (0.00-0.056) ng/mL NT-Pro-B Natriuret Pep 1765 H (0-450) pg/mL Total Protein 7.2 (6.4-8.2) g/dl Albumin 3.1 L (3.4-5.0) g/dl Globulin 4.1 gm/dL Albumin/Globulin Ratio 0.8 L (1-2) Triglycerides 120 (<150) mg/dL Cholesterol 197 (<200) mg/dL LDL Cholesterol Direct 121 H* (<100) mg/dL HDL Cholesterol 47.0 (40-59) mg/dL Lipase 155 (73-393) U/L TSH 3rd Generation 2.192 (0.358-3.74) uIU/mL Urine Color (Yellow) Urine Appearance (Clear) Urine pH (5.0-8.0) Ur Specific [place] (1.005-1.030) Urine Protein (Negative) Urine Glucose (UA) (Negative) Urine Ketones (Negative) Urine Occult Blood (Negative) Urine Nitrite (Negative) Urine Bilirubin (Negative) Urine Urobilinogen (0.2-1.0) Ur Leukocyte Esterase (Negative) Urine RBC (0-5) /hpf Urine WBC (0-5) /hpf Ur Epithelial Cells (0-5) /hpf Amorphous Sediment (NOT SEEN) /hpf Urine Bacteria (FEW) /hpf Urine Mucus (FEW) /hpf MRSA (PCR) 12/26/18 12/26/18 Range/Units 05:08 05:08 WBC (3.98-10.04) K/mm3 RBC (3.98-5.22) M/mm3 Hgb (11.2-15.7) gm/L Hct (34.1-44.9) % MCV (79.4-94.8) fl MCH (25.6-32.2) pg MCHC (32.2-35.5) g/dl RDW Std Deviation (36.4-46.3) fL Plt Count (182-369) K/mm3 MPV (9.4-12.3) fl Neut % (Auto) (34.0-71.1) % Lymph % (Auto) (19.3-51.7) % [place] % (Auto) (4.7-12.5) % Eos % (Auto) (0.7-5.8) Baso % (Auto) (0.1-1.2) % Neut # (Auto) (1.56-6.13) K/mm3 Lymph # (Auto) (1.18-3.74) K/mm3 [place] # (Auto) (0.24-0.36) K/mm3 Eos # (Auto) (0.04-0.36) K/mm3 Baso # (Auto) (0.01-0.08) K/mm3 PT (9.5-12.1) SECONDS INR APTT (24-31) SECONDS Sodium (136-145) mEq/L Potassium (3.5-5.1) mEq/L Chloride (98-107) mEq/L Carbon Dioxide (21-32) mEq/L Anion Gap (5-15) BUN (7-18) mg/dL Creatinine (0.55-1.02) mg/dL Est Cr Clr Drug Dosing mL/min Estimated GFR (MDRD) (>60) mL/min BUN/Creatinine Ratio (14-18) Glucose (83-115) mg/dL Hemoglobin A1c 5.20 (4.50-6.20) % Lactic Acid 1.3 (0.4-2.0) mmol/L Calcium (8.5-10.1) mg/dL Phosphorus (2.6-4.7) mg/dL Magnesium (1.8-2.4) mg/dl Total Bilirubin (0.2-1.0) mg/dL AST (15-37) U/L ALT (14-59) U/L Alkaline Phosphatase (46-116) U/L Creatine Kinase (26-192) U/L Troponin I (0.00-0.056) ng/mL NT-Pro-B Natriuret Pep (0-450) pg/mL Total Protein (6.4-8.2) g/dl Albumin (3.4-5.0) g/dl Globulin gm/dL Albumin/Globulin Ratio (1-2) Triglycerides (<150) mg/dL Cholesterol (<200) mg/dL LDL Cholesterol Direct (<100) mg/dL HDL Cholesterol (40-59) mg/dL Lipase (73-393) U/L TSH 3rd Generation (0.358-3.74) uIU/mL Urine Color (Yellow) Urine Appearance (Clear) Urine pH (5.0-8.0) Ur Specific [place] (1.005-1.030) Urine Protein (Negative) Urine Glucose (UA) (Negative) Urine Ketones (Negative) Urine Occult Blood (Negative) Urine Nitrite (Negative) Urine Bilirubin (Negative) Urine Urobilinogen (0.2-1.0) Ur Leukocyte Esterase (Negative) Urine RBC (0-5) /hpf Urine WBC (0-5) /hpf Ur Epithelial Cells (0-5) /hpf Amorphous Sediment (NOT SEEN) /hpf Urine Bacteria (FEW) /hpf Urine Mucus (FEW) /hpf MRSA (PCR) Med Orders - Current: Current Medications Enoxaparin Sodium (Lovenox) 30 mg SUBCUT DAILY [facility] Last Admin: 12/26/18 09:30 Dose: 30 mg Dextrose/Sodium Chloride (Dextrose 5%-Normal Saline) 1,000 mls @ 125 mls/hr IV ASDIRECTED [place] Last Admin: 12/26/18 05:50 Dose: 125 mls/hr Levofloxacin/Dextrose (Levaquin In D5w 250 Mg/50 Ml) 100 mls @ 100 mls/hr IV BEDTIME [facility] Ondansetron HCl (Zofran) 4 mg IVPUSH Q6H PRN PRN Reason: Nausea/Vomiting Last Admin: 12/26/18 10:48 Dose: 4 mg Sodium Chloride 5% 1 (Drop) 0 each EYEBOTH BID [facility] Last Admin: 12/26/18 09:32 Dose: Not Given Sertraline HCl (Zoloft) 100 mg PO DAILY [facility] Last Admin: 12/26/18 09:30 Dose: 100 mg Sodium Chloride (Saline Flush) 10 ml FLUSH ASDIRECTED PRN PRN Reason: Keep Vein Open Last Admin: 12/25/18 17:33 Dose: 10 ml Zolpidem Tartrate (Ambien) 5 mg PO BEDTIME [facility] Discontinued Medications Sodium Chloride (Normal Saline) 1,000 mls @ 150 mls/hr IV ASDIRECTED [place] Last Admin: 12/25/18 17:33 Dose: 150 mls/hr Ceftriaxone Sodium 1 gm/ (Sodium Chloride) 100 mls @ 200 mls/hr IV ONETIME ONE Stop: 12/25/18 19:20 Last Admin: 12/25/18 18:58 Dose: 200 mls/hr Levofloxacin/Dextrose 500 mg/ (Premix) 100 mls @ 100 mls/hr IV ONETIME ONE Stop: 12/25/18 20:29 Last Admin: 12/25/18 20:47 Dose: 100 mls/hr Magnesium Sulfate 2 gm/ Premix 50 mls @ 25 mls/hr IV ONETIME ONE Stop: 12/26/18 12:00 Last Admin: 12/26/18 10:47 Dose: 25 mls/hr Potassium Chloride (Potassium Chloride Solution) 60 meq PO ONETIME ONE Stop: 12/26/18 10:02 Last Admin: 12/26/18 10:47 Dose: 60 meq - Exam Physical Findings Comments:: General: lethargic, Cooperative. No: Oriented HEENT: Conjunctiva Clear, EOMI, Pupils Reactive Neck: Supple, Trachea Midline. No: JVD Lungs: Clear to Auscultation, Normal Respiratory Effort Cardiovascular: Regular Rate, Regular Rhythm, Systolic Murmur GI/Abdominal Exam: Normal Bowel Sounds, Soft, Non-Tender, No Organomegaly Extremities: No Pedal Edema. No: Joint Swelling Peripheral Pulses: 1+: Dorsalis Pedis (L), Dorsalis Pedis (R) Skin: Warm, Dry Neurological: Cranial Nerves Intact Neuro Extensive - Mental Status: Disorientation to Place, Disorientation to Time , Memory Loss-Recent Events, Slow Response to Commands Neuro Extensive - Motor, Sensory, Reflexes: No: Motor/Sensory Deficits - Problem List & Annotations (1) UTI (urinary tract infection) SNOMED Code(s): 55345552 Code(s): N39.0 - URINARY TRACT INFECTION, SITE NOT SPECIFIED Status: Acute Current Visit: Yes Qualifiers: Encounter type: initial encounter (2) Dementia SNOMED Code(s): 40260208 Code(s): F03.90 - UNSPECIFIED DEMENTIA WITHOUT BEHAVIORAL DISTURBANCE Status: Acute Current Visit: Yes Qualifiers: Dementia type: Alzheimer's disease Alzheimer's disease onset: unspecified onset - Problem List Review Problem List Initiated/Reviewed/Updated: Yes - My Orders Last 24 Hours: My Active Orders 12/25/18 19:09 Height and Weight [RC] 04 VTE/DVT Education [RC] , Vital Signs [RC] Q4HR 12/25/18 19:15 Dextrose 5%-0.9% NaCl [Dextrose 5%-Normal Saline] 1,000 ml IV ASDIRECTED Enoxaparin [Lovenox] 30 mg SUBCUT DAILY 12/25/18 19:43 Blood Culture x2 Reflex Set [OM.PC] Stat 12/25/18 20:00 CULTURE BLOOD [BC] Stat 12/25/18 20:05 CULTURE BLOOD [BC] Stat 12/25/18 21:00 Patient's Own Medication [Ptom] 0 each EYEBOTH BID 12/25/18 22:04 Resuscitation Status Routine 12/26/18 09:00 Sertraline [Zoloft] 100 mg PO DAILY 12/26/18 10:02 Ondansetron [Zofran] 4 mg IVPUSH Q6H PRN 12/26/18 13:02 Dietary Supplements [RC] WITHMEALSANDBED 12/26/18 21:00 Levofloxacin/Dextrose 5%-Water [Levaquin in D5W 250 MG/50 ML] 100 ml IV BEDTIME Zolpidem [Ambien] 5 mg PO BEDTIME 12/27/18 05:00 MAGNESIUM [CHEM] AM PHOSPHORUS [CHEM] AM 12/27/18 05:11 BMP [BASIC METABOLIC PANEL,BMP] [CHEM] AM CBC WITH AUTO DIFF [HEME] AM LACTIC ACID [CHEM] AM PRO B-TYPE NATRIUR PEPT,BNPPRO [CHEM] AM TROPONIN I [CHEM] AM - Plan Plan:: 1. IVF, abx, pending cultures. 2. PT/OT eval. 3. Nutrition supplements. 4. Screen with TSH. 5. SNF placement.
[2018-12-26] MEDS: Zolpidem 5 MG Tab PO SCH (20:42)
[2018-12-26] MEDS ORDERED: Levofloxacin/Dextrose 5%-Water 100 ML IV SCH (21:00)
[2018-12-26] MEDS: Levofloxacin/Dextrose 5%-Water 50 ML IV SCH (21:04)
[2018-12-27] MEDS: Dextrose 5%-0.9% NaCl 1,000 ML IV SCH (01:09)
[2018-12-27] MEDS: Sertraline 50 MG Tab PO SCH (08:39)
[2018-12-27] MEDS: Enoxaparin 30 MG/0.3 ML Syringe SUBCUT SCH (08:40)
[2018-12-27] MEDS: SODIUM CHLORIDE 5% EYEBOTH SCH ×2 (08:40→21:51)
[2018-12-27] MEDS ORDERED: Furosemide 20 MG/2 ML VIAL IVPUSH ONE (10:10)
[2018-12-27] MEDS: Nicotine 7 MG/24 Hr Patch TRDERM SCH ×2 (11:10→14:09)
[2018-12-27] MEDS ORDERED: Docusate Sodium 100 MG Cap PO PRN (11:46)
--- NOTE | 2018-12-27 11:57 | PCM.PN ---
- General Info Date of Service: 12/27/18 Admission Dx/Problem (Free Text): 83 yo WF with h/o dementia admitted after was brought to ED from assisted living facility with frequent falls, functional decline and recently diagnosed UTI. 12/26/2018, poor night sleep, will add home zolpidem at lower dose, reports esophageal dysphagia, has h/o strictures and dilation, not made a decision to address on this admission. Will involve surgery if decision is made. Poor nutrition, added supplements. 12/27/2018, still poor po intake, suspect underlying CHF, will obtain ECHO, mild diuresis, trial of ACEi. - Review of Systems General: Denies: Fever, Weakness HEENT: Reports: Dysphasia Pulmonary: Denies: Shortness of Breath Cardiovascular: Denies: Chest Pain, Palpitations Gastrointestinal: Reports: Decreased Appetite. Denies: Abdominal Pain Genitourinary: Denies: Dysuria, Frequency Neurological: Reports: Confusion. Denies: Seizure, Syncope Psychiatric: Reports: Anxiety - Patient Data Vitals - Most Recent: Last Vital Signs Temp 98.1 F 12/26/18 20:39 Pulse 67 12/27/18 05:49 Resp 16 12/26/18 20:39 BP 160/88 H 12/27/18 11:11 Pulse Ox 91 L 12/27/18 05:49 Weight - Most Recent: 122 lb I&O - Last 24 Hours: Intake & Output 12/26/18 12/27/18 12/27/18 19:59 03:59 11:59 Intake Total 1338 2280 Balance 1338 2280 Lab Results Last 24 Hours: Laboratory Results - last 24 hr 12/27/18 12/27/18 12/27/18 Range/Units 05:05 05:05 05:05 WBC 5.82 (3.98-10.04) K/mm3 RBC 3.38 L (3.98-5.22) M/mm3 Hgb 10.4 L (11.2-15.7) gm/L Hct 33.4 L (34.1-44.9) % MCV 98.8 H (79.4-94.8) fl MCH 30.8 (25.6-32.2) pg MCHC 31.1 L (32.2-35.5) g/dl RDW Std Deviation 56.7 H (36.4-46.3) fL Plt Count 236 (182-369) K/mm3 MPV 9.5 (9.4-12.3) fl Neut % (Auto) 68.2 (34.0-71.1) % Lymph % (Auto) 19.4 (19.3-51.7) % [place] % (Auto) 10.5 (4.7-12.5) % Eos % (Auto) 1.7 (0.7-5.8) Baso % (Auto) 0.2 (0.1-1.2) % Neut # (Auto) 3.97 (1.56-6.13) K/mm3 Lymph # (Auto) 1.13 L (1.18-3.74) K/mm3 [place] # (Auto) 0.61 H (0.24-0.36) K/mm3 Eos # (Auto) 0.10 (0.04-0.36) K/mm3 Baso # (Auto) 0.01 (0.01-0.08) K/mm3 Sodium 141 (136-145) mEq/L Potassium 3.7 (3.5-5.1) mEq/L Chloride 106 (98-107) mEq/L Carbon Dioxide 24 (21-32) mEq/L Anion Gap 14.7 (5-15) BUN 8 (7-18) mg/dL Creatinine 0.9 (0.55-1.02) mg/dL Est Cr Clr Drug Dosing 37.46 mL/min Estimated GFR (MDRD) 60 (>60) mL/min BUN/Creatinine Ratio 8.9 L (14-18) Glucose 118 H (83-115) mg/dL Lactic Acid (0.4-2.0) mmol/L Calcium 8.9 (8.5-10.1) mg/dL Phosphorus 2.3 L (2.6-4.7) mg/dL Magnesium 2.0 (1.8-2.4) mg/dl Troponin I 0.040 (0.00-0.056) ng/mL NT-Pro-B Natriuret Pep (0-450) pg/mL 12/27/18 12/27/18 Range/Units 05:05 05:05 WBC (3.98-10.04) K/mm3 RBC (3.98-5.22) M/mm3 Hgb (11.2-15.7) gm/L Hct (34.1-44.9) % MCV (79.4-94.8) fl MCH (25.6-32.2) pg MCHC (32.2-35.5) g/dl RDW Std Deviation (36.4-46.3) fL Plt Count (182-369) K/mm3 MPV (9.4-12.3) fl Neut % (Auto) (34.0-71.1) % Lymph % (Auto) (19.3-51.7) % [place] % (Auto) (4.7-12.5) % Eos % (Auto) (0.7-5.8) Baso % (Auto) (0.1-1.2) % Neut # (Auto) (1.56-6.13) K/mm3 Lymph # (Auto) (1.18-3.74) K/mm3 [place] # (Auto) (0.24-0.36) K/mm3 Eos # (Auto) (0.04-0.36) K/mm3 Baso # (Auto) (0.01-0.08) K/mm3 Sodium (136-145) mEq/L Potassium (3.5-5.1) mEq/L Chloride (98-107) mEq/L Carbon Dioxide (21-32) mEq/L Anion Gap (5-15) BUN (7-18) mg/dL Creatinine (0.55-1.02) mg/dL Est Cr Clr Drug Dosing mL/min Estimated GFR (MDRD) (>60) mL/min BUN/Creatinine Ratio (14-18) Glucose (83-115) mg/dL Lactic Acid 1.5 (0.4-2.0) mmol/L Calcium (8.5-10.1) mg/dL Phosphorus (2.6-4.7) mg/dL Magnesium (1.8-2.4) mg/dl Troponin I (0.00-0.056) ng/mL NT-Pro-B Natriuret Pep 1999 H (0-450) pg/mL Leon Results Last 24 Hours: Microbiology 12/25/18 20:05 Aerobic Blood Culture - Preliminary Blood - Venous - Lab Draw NO GROWTH AFTER 1 DAY Anaerobic Blood Culture - Preliminary NO GROWTH AFTER 1 DAY 12/25/18 20:00 Aerobic Blood Culture - Preliminary Blood - Venous NO GROWTH AFTER 1 DAY Anaerobic Blood Culture - Preliminary NO GROWTH AFTER 1 DAY Med Orders - Current: Current Medications Acetaminophen (Tylenol) 650 mg PO Q6H PRN PRN Reason: Headache/Pain Alprazolam (Xanax) 0.5 mg PO BEDTIME [facility] Captopril (Capoten) 3.125 mg PO Q8H [facility] Last Admin: 12/27/18 11:11 Dose: 3.125 mg Docusate Sodium (Colace) 100 mg PO BID PRN PRN Reason: Constipation Enoxaparin Sodium (Lovenox) 30 mg SUBCUT DAILY [facility] Last Admin: 12/27/18 08:40 Dose: 30 mg Dextrose/Sodium Chloride (Dextrose 5%-Normal Saline) 1,000 mls @ 125 mls/hr IV ASDIRECTED [facility] Last Admin: 12/27/18 01:09 Dose: 125 mls/hr Levofloxacin/Dextrose (Levaquin In D5w 250 Mg/50 Ml) 50 mls @ 50 mls/hr IV BEDTIME [facility] Last Admin: 12/26/18 21:04 Dose: 50 mls/hr Miscellaneous Information (Remove Patch) 1 ea TRDERM DAILY [facility] Miscellaneous Information (Remove Patch) 1 ea TRDERM DAILY [facility] Nicotine (Habitrol) 7 mg TRDERM DAILY [facility] Last Admin: 12/27/18 11:10 Dose: Not Given Nicotine (Habitrol) 7 mg TRDERM DAILY [facility] Ondansetron HCl (Zofran) 4 mg IVPUSH Q6H PRN PRN Reason: Nausea/Vomiting Last Admin: 12/26/18 20:02 Dose: 4 mg Sodium Chloride 5% 1 (Drop) 0 each EYEBOTH BID [facility] Last Admin: 12/27/18 08:40 Dose: Not Given Sertraline HCl (Zoloft) 100 mg PO DAILY [facility] Last Admin: 12/27/18 08:39 Dose: 100 mg Sodium Chloride (Saline Flush) 10 ml FLUSH ASDIRECTED PRN PRN Reason: Keep Vein Open Last Admin: 12/25/18 17:33 Dose: 10 ml Zolpidem Tartrate (Ambien) 5 mg PO BEDTIME [facility] Last Admin: 12/26/18 20:42 Dose: 5 mg Discontinued Medications Furosemide (Lasix) 20 mg IVPUSH NOW ONE Stop: 12/27/18 10:11 Last Admin: 12/27/18 11:12 Dose: 20 mg Sodium Chloride (Normal Saline) 1,000 mls @ 150 mls/hr IV ASDIRECTED [place] Last Admin: 12/25/18 17:33 Dose: 150 mls/hr Ceftriaxone Sodium 1 gm/ (Sodium Chloride) 100 mls @ 200 mls/hr IV ONETIME ONE Stop: 12/25/18 19:20 Last Admin: 12/25/18 18:58 Dose: 200 mls/hr Levofloxacin/Dextrose 500 mg/ (Premix) 100 mls @ 100 mls/hr IV ONETIME ONE Stop: 12/25/18 20:29 Last Admin: 12/25/18 20:47 Dose: 100 mls/hr Magnesium Sulfate 2 gm/ Premix 50 mls @ 25 mls/hr IV ONETIME ONE Stop: 12/26/18 12:00 Last Admin: 12/26/18 10:47 Dose: 25 mls/hr Potassium Chloride (Potassium Chloride Solution) 60 meq PO ONETIME ONE Stop: 12/26/18 10:02 Last Admin: 12/26/18 10:47 Dose: 60 meq - Exam Physical Findings Comments:: General: lethargic, Cooperative. No: Oriented HEENT: Conjunctiva Clear, EOMI, Pupils Reactive Neck: Supple, Trachea Midline. No: JVD Lungs: Clear to Auscultation, Normal Respiratory Effort Cardiovascular: Regular Rate, Regular Rhythm, Systolic Murmur GI/Abdominal Exam: Normal Bowel Sounds, Soft, Non-Tender, No Organomegaly Extremities: No Pedal Edema. No: Joint Swelling Peripheral Pulses: 1+: Dorsalis Pedis (L), Dorsalis Pedis (R) Skin: Warm, Dry Neurological: Cranial Nerves Intact Neuro Extensive - Mental Status: Disorientation to Place, Disorientation to Time , Memory Loss-Recent Events, Slow Response to Commands Neuro Extensive - Motor, Sensory, Reflexes: No: Motor/Sensory Deficits - Problem List & Annotations (1) UTI (urinary tract infection) SNOMED Code(s): 31962882 Code(s): N39.0 - URINARY TRACT INFECTION, SITE NOT SPECIFIED Status: Acute Current Visit: Yes Qualifiers: Encounter type: initial encounter (2) Dementia SNOMED Code(s): 18673473 Code(s): F03.90 - UNSPECIFIED DEMENTIA WITHOUT BEHAVIORAL DISTURBANCE Status: Acute Current Visit: Yes Qualifiers: Dementia type: Alzheimer's disease Alzheimer's disease onset: unspecified onset - Problem List Review Problem List Initiated/Reviewed/Updated: Yes - My Orders Last 24 Hours: My Active Orders 12/26/18 13:02 Dietary Supplements [RC] WITHMEALSANDBED 12/26/18 21:00 Zolpidem [Ambien] 5 mg PO BEDTIME 12/26/18 21:15 Levofloxacin/Dextrose 5%-Water [Levaquin in D5W 250 MG/50 ML] 50 ml IV BEDTIME 12/27/18 08:03 Up With Assistance [] ASDIRECTED 12/27/18 10:30 Captopril [Capoten] 3.125 mg PO Q8H 12/27/18 10:32 Communication Order [] DAILY 12/27/18 10:45 Nicotine [Habitrol] 7 mg TRDERM DAILY 12/27/18 11:46 Docusate Sodium [Colace] 100 mg PO BID PRN 12/27/18 11:47 Acetaminophen [Tylenol] 650 mg PO Q6H PRN 12/27/18 12:00 Nicotine [Habitrol] 7 mg TRDERM DAILY 12/27/18 21:00 ALPRAZolam [Xanax] 0.5 mg PO BEDTIME 12/28/18 05:00 MAGNESIUM [CHEM] AM PHOSPHORUS [CHEM] AM 12/28/18 05:11 CBC WITH AUTO DIFF [HEME] AM COMPREHENSIVE METABOLIC PN,CMP [CHEM] AM PRO B-TYPE NATRIUR PEPT,BNPPRO [CHEM] AM 12/28/18 07:00 Echo Comp wo Cont [US] Timed 12/28/18 09:00 Remove Patch 1 ea TRDERM DAILY Remove Patch 1 ea TRDERM DAILY - Plan Plan:: 1. IVF, abx, pending cultures. 2. PT/OT eval. 3. Nutrition supplements. 4. Suspected CHF, 2D ECHO pending, low dose diuretic and ACEi. 5. SNF placement.
[2018-12-27] MEDS: Acetaminophen 325 MG Tab PO PRN (20:25)
[2018-12-27] MEDS: ALPRAZolam 0.5 MG Tab PO SCH (20:28)
[2018-12-27] MEDS: Levofloxacin/Dextrose 5%-Water 50 ML IV SCH (20:29)
[2018-12-27] MEDS: Zolpidem 5 MG Tab PO SCH (21:51)
[2018-12-28] MEDS: Sertraline 50 MG Tab PO SCH (09:55)
[2018-12-28] MEDS: Enoxaparin 30 MG/0.3 ML Syringe SUBCUT SCH (09:56)
[2018-12-28] MEDS: Nicotine 7 MG/24 Hr Patch TRDERM SCH ×2 (09:57→09:58)
[2018-12-28] MEDS: SODIUM CHLORIDE 5% EYEBOTH SCH ×2 (09:58→21:08)
--- NOTE | 2018-12-28 11:44 | PCM.PN ---
- General Info Date of Service: 12/28/18 Admission Dx/Problem (Free Text): 83 yo WF with h/o dementia admitted after was brought to ED from assisted living facility with frequent falls, functional decline and recently diagnosed UTI. 12/26/2018, poor night sleep, will add home zolpidem at lower dose, reports esophageal dysphagia, has h/o strictures and dilation, not made a decision to address on this admission. Will involve surgery if decision is made. Poor nutrition, added supplements. 12/27/2018, still poor po intake, suspect underlying CHF, will obtain ECHO, mild diuresis, trial of ACEi. 12/28/2018, no major change, placement pending. - Review of Systems Systems Review Comment:: General: Denies: Fever, Weakness HEENT: Reports: Dysphasia Pulmonary: Denies: Shortness of Breath Cardiovascular: Denies: Chest Pain, Palpitations Gastrointestinal: Reports: Decreased Appetite. Denies: Abdominal Pain Genitourinary: Denies: Dysuria, Frequency Neurological: Reports: Confusion. Denies: Seizure, Syncope Psychiatric: Reports: Anxiety - Patient Data Vitals - Most Recent: Last Vital Signs Temp 97.9 F 12/28/18 07:13 Pulse 55 L 12/28/18 07:13 Resp 15 12/28/18 07:13 BP 135/70 12/28/18 07:13 Pulse Ox 94 L 12/28/18 07:13 Weight - Most Recent: 120 lb I&O - Last 24 Hours: Intake & Output 12/27/18 12/28/18 12/28/18 19:59 03:59 11:59 Intake Total 739 490 Output Total 100 Balance 639 490 Lab Results Last 24 Hours: Laboratory Results - last 24 hr 12/28/18 12/28/18 12/28/18 Range/Units 05:25 05:25 05:25 WBC 5.56 (3.98-10.04) K/mm3 RBC 3.27 L (3.98-5.22) M/mm3 Hgb 10.1 L (11.2-15.7) gm/L Hct 32.6 L (34.1-44.9) % MCV 99.7 H (79.4-94.8) fl MCH 30.9 (25.6-32.2) pg MCHC 31.0 L (32.2-35.5) g/dl RDW Std Deviation 58.0 H (36.4-46.3) fL Plt Count 248 (182-369) K/mm3 MPV 9.6 (9.4-12.3) fl Neut % (Auto) 59.1 (34.0-71.1) % Lymph % (Auto) 24.3 (19.3-51.7) % [place] % (Auto) 11.9 (4.7-12.5) % Eos % (Auto) 4.0 (0.7-5.8) Baso % (Auto) 0.5 (0.1-1.2) % Neut # (Auto) 3.29 (1.56-6.13) K/mm3 Lymph # (Auto) 1.35 (1.18-3.74) K/mm3 [place] # (Auto) 0.66 H (0.24-0.36) K/mm3 Eos # (Auto) 0.22 (0.04-0.36) K/mm3 Baso # (Auto) 0.03 (0.01-0.08) K/mm3 Sodium 140 (136-145) mEq/L Potassium 3.8 (3.5-5.1) mEq/L Chloride 105 (98-107) mEq/L Carbon Dioxide 27 (21-32) mEq/L Anion Gap 11.8 (5-15) BUN 11 (7-18) mg/dL Creatinine 1.2 H (0.55-1.02) mg/dL Est Cr Clr Drug Dosing 28.09 mL/min Estimated GFR (MDRD) 43 (>60) mL/min BUN/Creatinine Ratio 9.2 L (14-18) Glucose 92 (83-115) mg/dL Calcium 9.1 (8.5-10.1) mg/dL Phosphorus 3.3 (2.6-4.7) mg/dL Magnesium 1.8 (1.8-2.4) mg/dl Total Bilirubin 0.3 (0.2-1.0) mg/dL AST 27 (15-37) U/L ALT 19 (14-59) U/L Alkaline Phosphatase 75 (46-116) U/L NT-Pro-B Natriuret Pep (0-450) pg/mL Total Protein 6.3 L (6.4-8.2) g/dl Albumin 2.8 L (3.4-5.0) g/dl Globulin 3.5 gm/dL Albumin/Globulin Ratio 0.8 L (1-2) 12/28/18 Range/Units 05:25 WBC (3.98-10.04) K/mm3 RBC (3.98-5.22) M/mm3 Hgb (11.2-15.7) gm/L Hct (34.1-44.9) % MCV (79.4-94.8) fl MCH (25.6-32.2) pg MCHC (32.2-35.5) g/dl RDW Std Deviation (36.4-46.3) fL Plt Count (182-369) K/mm3 MPV (9.4-12.3) fl Neut % (Auto) (34.0-71.1) % Lymph % (Auto) (19.3-51.7) % [place] % (Auto) (4.7-12.5) % Eos % (Auto) (0.7-5.8) Baso % (Auto) (0.1-1.2) % Neut # (Auto) (1.56-6.13) K/mm3 Lymph # (Auto) (1.18-3.74) K/mm3 [place] # (Auto) (0.24-0.36) K/mm3 Eos # (Auto) (0.04-0.36) K/mm3 Baso # (Auto) (0.01-0.08) K/mm3 Sodium (136-145) mEq/L Potassium (3.5-5.1) mEq/L Chloride (98-107) mEq/L Carbon Dioxide (21-32) mEq/L Anion Gap (5-15) BUN (7-18) mg/dL Creatinine (0.55-1.02) mg/dL Est Cr Clr Drug Dosing mL/min Estimated GFR (MDRD) (>60) mL/min BUN/Creatinine Ratio (14-18) Glucose (83-115) mg/dL Calcium (8.5-10.1) mg/dL Phosphorus (2.6-4.7) mg/dL Magnesium (1.8-2.4) mg/dl Total Bilirubin (0.2-1.0) mg/dL AST (15-37) U/L ALT (14-59) U/L Alkaline Phosphatase (46-116) U/L NT-Pro-B Natriuret Pep 2008 H (0-450) pg/mL Total Protein (6.4-8.2) g/dl Albumin (3.4-5.0) g/dl Globulin gm/dL Albumin/Globulin Ratio (1-2) Leon Results Last 24 Hours: Microbiology 12/25/18 20:05 Aerobic Blood Culture - Preliminary Blood - Venous - Lab Draw NO GROWTH AFTER 2 DAYS Anaerobic Blood Culture - Preliminary NO GROWTH AFTER 2 DAYS 12/25/18 20:00 Aerobic Blood Culture - Preliminary Blood - Venous NO GROWTH AFTER 2 DAYS Anaerobic Blood Culture - Preliminary NO GROWTH AFTER 2 DAYS Med Orders - Current: Current Medications Acetaminophen (Tylenol) 650 mg PO Q6H PRN PRN Reason: Headache/Pain Last Admin: 12/27/18 20:25 Dose: 650 mg Alprazolam (Xanax) 0.5 mg PO BEDTIME [facility] Last Admin: 12/27/18 20:28 Dose: 0.5 mg Captopril (Capoten) 3.125 mg PO Q8H [facility] Last Admin: 12/28/18 05:48 Dose: 3.125 mg Docusate Sodium (Colace) 100 mg PO BID PRN PRN Reason: Constipation Last Admin: 12/27/18 13:35 Dose: 100 mg Enoxaparin Sodium (Lovenox) 30 mg SUBCUT DAILY [facility] Last Admin: 12/28/18 09:56 Dose: 30 mg Levofloxacin (Levaquin) 250 mg PO BEDTIME [facility] Miscellaneous Information (Remove Patch) 1 ea TRDERM DAILY [facility] Last Admin: 12/28/18 09:58 Dose: Not Given Miscellaneous Information (Remove Patch) 1 ea TRDERM DAILY [facility] Last Admin: 12/28/18 09:59 Dose: Not Given Nicotine (Habitrol) 7 mg TRDERM DAILY [facility] Last Admin: 12/28/18 09:57 Dose: Not Given Nicotine (Habitrol) 7 mg TRDERM DAILY [facility] Last Admin: 12/28/18 09:58 Dose: Not Given Ondansetron HCl (Zofran) 4 mg IVPUSH Q6H PRN PRN Reason: Nausea/Vomiting Last Admin: 12/26/18 20:02 Dose: 4 mg Sodium Chloride 5% 1 (Drop) 0 each EYEBOTH BID [facility] Last Admin: 12/28/18 09:58 Dose: Not Given Sertraline HCl (Zoloft) 100 mg PO DAILY [facility] Last Admin: 12/28/18 09:55 Dose: 100 mg Sodium Chloride (Saline Flush) 10 ml FLUSH ASDIRECTED PRN PRN Reason: Keep Vein Open Last Admin: 12/25/18 17:33 Dose: 10 ml Zolpidem Tartrate (Ambien) 5 mg PO BEDTIME [facility] Last Admin: 12/27/18 21:51 Dose: Not Given Discontinued Medications Captopril (Capoten) 3.125 mg PO Q8H [facility] Last Admin: 12/27/18 18:26 Dose: Not Given Furosemide (Lasix) 20 mg IVPUSH NOW ONE Stop: 12/27/18 10:11 Last Admin: 12/27/18 11:12 Dose: 20 mg Sodium Chloride (Normal Saline) 1,000 mls @ 150 mls/hr IV ASDIRECTED [facility] Last Admin: 12/25/18 17:33 Dose: 150 mls/hr Ceftriaxone Sodium 1 gm/ (Sodium Chloride) 100 mls @ 200 mls/hr IV ONETIME ONE Stop: 12/25/18 19:20 Last Admin: 12/25/18 18:58 Dose: 200 mls/hr Dextrose/Sodium Chloride (Dextrose 5%-Normal Saline) 1,000 mls @ 125 mls/hr IV ASDIRECTED [facility] Last Admin: 12/27/18 01:09 Dose: 125 mls/hr Levofloxacin/Dextrose 500 mg/ (Premix) 100 mls @ 100 mls/hr IV ONETIME ONE Stop: 12/25/18 20:29 Last Admin: 12/25/18 20:47 Dose: 100 mls/hr Magnesium Sulfate 2 gm/ Premix 50 mls @ 25 mls/hr IV ONETIME ONE Stop: 12/26/18 12:00 Last Admin: 12/26/18 10:47 Dose: 25 mls/hr Levofloxacin/Dextrose (Levaquin In D5w 250 Mg/50 Ml) 50 mls @ 50 mls/hr IV BEDTIME [facility] Last Admin: 12/27/18 20:29 Dose: 50 mls/hr Potassium Chloride (Potassium Chloride Solution) 60 meq PO ONETIME ONE Stop: 12/26/18 10:02 Last Admin: 12/26/18 10:47 Dose: 60 meq - Exam Physical Findings Comments:: General: lethargic, Cooperative. No: Oriented HEENT: Conjunctiva Clear, EOMI, Pupils Reactive Neck: Supple, Trachea Midline. No: JVD Lungs: Clear to Auscultation, Normal Respiratory Effort Cardiovascular: Regular Rate, Regular Rhythm, Systolic Murmur GI/Abdominal Exam: Normal Bowel Sounds, Soft, Non-Tender, No Organomegaly Extremities: No Pedal Edema. No: Joint Swelling Peripheral Pulses: 1+: Dorsalis Pedis (L), Dorsalis Pedis (R) Skin: Warm, Dry Neurological: Cranial Nerves Intact Neuro Extensive - Mental Status: Disorientation to Place, Disorientation to Time , Memory Loss-Recent Events, Slow Response to Commands Neuro Extensive - Motor, Sensory, Reflexes: No: Motor/Sensory Deficits - Problem List & Annotations (1) UTI (urinary tract infection) SNOMED Code(s): 08923494 Code(s): N39.0 - URINARY TRACT INFECTION, SITE NOT SPECIFIED Status: Acute Current Visit: Yes Qualifiers: Encounter type: initial encounter (2) Dementia SNOMED Code(s): 12158231 Code(s): F03.90 - UNSPECIFIED DEMENTIA WITHOUT BEHAVIORAL DISTURBANCE Status: Acute Current Visit: Yes Qualifiers: Dementia type: Alzheimer's disease Alzheimer's disease onset: unspecified onset - Problem List Review Problem List Initiated/Reviewed/Updated: Yes - My Orders Last 24 Hours: My Active Orders 12/27/18 10:45 Nicotine [Habitrol] 7 mg TRDERM DAILY 12/27/18 11:46 Docusate Sodium [Colace] 100 mg PO BID PRN 12/27/18 11:47 Acetaminophen [Tylenol] 650 mg PO Q6H PRN 12/27/18 12:00 Nicotine [Habitrol] 7 mg TRDERM DAILY 12/27/18 20:00 Captopril [Capoten] 3.125 mg PO Q8H 12/27/18 21:00 ALPRAZolam [Xanax] 0.5 mg PO BEDTIME 12/28/18 08:51 Consult to Occupational Therapy [OT Evaluation and Treatment] [CONS] Routine PT Evaluation and Treatment [CONS] Routine 12/28/18 09:00 Remove Patch 1 ea TRDERM DAILY Remove Patch 1 ea TRDERM DAILY 12/28/18 21:00 levoFLOXacin [Levaquin] 250 mg PO BEDTIME - Plan Plan:: 1. IVF, abx, pending cultures. 2. PT/OT eval. 3. Nutrition supplements. 4. Suspected CHF, 2D ECHO pending, low dose diuretic and ACEi. 5. SNF placement.
[2018-12-28] MEDS ORDERED: Levofloxacin 250 MG Tab PO SCH (21:00)
[2018-12-28] MEDS: Zolpidem 5 MG Tab PO SCH (21:06)
[2018-12-28] MEDS: ALPRAZolam 0.5 MG Tab PO SCH (21:06)
[2018-12-29] MEDS: Acetaminophen 325 MG Tab PO PRN (03:48)
[2018-12-29] MEDS: Sertraline 50 MG Tab PO SCH (08:09)
[2018-12-29] MEDS: Enoxaparin 30 MG/0.3 ML Syringe SUBCUT SCH (08:10)
--- NOTE | 2018-12-29 10:54 | PCM.DCSUM1 ---
Discharge Summary - Hospital Course Free Text/Narrative:: 83 yo WF with h/o dementia admitted after was brought to ED from assisted living facility with frequent falls, functional decline and recently diagnosed UTI. 12/26/2018, poor night sleep, will add home zolpidem at lower dose, reports esophageal dysphagia, has h/o strictures and dilation, not made a decision to address on this admission. Will involve surgery if decision is made. Poor nutrition, added supplements. 12/27/2018, still poor po intake, suspect underlying CHF, will obtain ECHO, mild diuresis, trial of ACEi. 12/28/2018, no major change, placement pending. 12/29/2018, dic to SNF. Diagnosis: Stroke: No - Discharge Data Discharge Date: 12/29/18 Discharge Disposition: DC/Tfer to SNF 03 Condition: Good - Discharge Diagnosis/Problem(s) (1) UTI (urinary tract infection) SNOMED Code(s): 92222502 ICD Code: N39.0 - URINARY TRACT INFECTION, SITE NOT SPECIFIED Status: Acute Current Visit: Yes Qualifiers: Encounter type: initial encounter (2) Dementia SNOMED Code(s): 66666879 ICD Code: F03.90 - UNSPECIFIED DEMENTIA WITHOUT BEHAVIORAL DISTURBANCE Status: Acute Current Visit: Yes Qualifiers: Dementia type: Alzheimer's disease Alzheimer's disease onset: unspecified onset - Patient Summary/Data Consults: Consultations 12/28/18 08:51 Consult to Occupational Therapy [OT Evaluation and Treatment] [CONS] Routine PT Evaluation and Treatment [CONS] Routine - Discharge Plan Home Medications: Home Meds ALPRAZolam [Xanax] 1 mg PO BEDTIME 12/23/18 [History] Aspirin/Acetaminophen/Caffeine [Headache Relief Tablet] 2 tab PO TID PRN [History] Calcium Carbonate/Vitamin D3 [Calcium 500+D Tablet Chew] 1 tab PO DAILY [History] Cholecalciferol (Vitamin D3) [Vitamin D3] 2,000 unit PO DAILY 12/23/18 [History] Ferrous Sulfate 325 mg PO DAILY 12/23/18 [History] Menthol [Biofreeze] 1 applic TOP DAILY PRN 12/23/18 [History] Omeprazole 20 mg PO DAILY 12/23/18 [History] Ondansetron [Zofran] 4 mg PO Q4HR PRN 12/23/18 [History] Sertraline [Zoloft] 100 mg PO DAILY 12/23/18 [History] Zolpidem [Ambien] 10 mg PO BEDTIME PRN 12/23/18 [History] Uptime Maximum Energy 1 - 3 tab PO DAILY PRN 12/25/18 [History] Acetaminophen [Tylenol] 650 mg PO Q6H PRN tablet 12/29/18 [Rx] Captopril [Capoten] 3.125 mg PO Q8H tablet 12/29/18 [Rx] Docusate Sodium [Colace] 100 mg PO BID PRN cap 12/29/18 [Rx] Nicotine [Habitrol] 7 mg TRDERM DAILY patch 12/29/18 [Rx] Patient's Own Medication [Ptom] 0 each EYEBOTH BID each 12/29/18 [Rx] Sertraline [Zoloft] 100 mg PO DAILY tablet 12/29/18 [Rx] levoFLOXacin [Levaquin] 250 mg PO BEDTIME tablet 12/29/18 [Rx] Patient Handouts: Steps to Quit Smoking Forms: ED Department Discharge Referrals: Katerin Hansen NP [Primary Care Provider] - - Discharge Summary/Plan Comment DC Time >30 min.: No - Patient Data Vitals - Most Recent: Last Vital Signs Temp 97.0 F 12/29/18 07:00 Pulse 71 12/29/18 07:00 Resp 18 12/29/18 07:00 BP 120/77 12/29/18 07:00 Pulse Ox 91 L 12/29/18 07:00 Weight - Most Recent: 117 lb 6.4 oz I&O - Last 24 hours: Intake & Output 12/28/18 12/29/18 12/29/18 19:59 03:59 11:59 Intake Total 320 440 Balance 320 440 Lab Results - Last 24 hrs: Laboratory Results - last 24 hr 12/29/18 12/29/18 Range/Units 05:24 05:24 Sodium 141 (136-145) mEq/L Potassium 3.7 (3.5-5.1) mEq/L Chloride 106 (98-107) mEq/L Carbon Dioxide 26 (21-32) mEq/L Anion Gap 12.7 (5-15) BUN 22 H (7-18) mg/dL Creatinine 1.2 H (0.55-1.02) mg/dL Est Cr Clr Drug Dosing 28.09 mL/min Estimated GFR (MDRD) 43 (>60) mL/min BUN/Creatinine Ratio 18.3 H (14-18) Glucose 102 (83-115) mg/dL Calcium 9.2 (8.5-10.1) mg/dL Phosphorus 3.3 (2.6-4.7) mg/dL Magnesium 1.9 (1.8-2.4) mg/dl NENO Results - Last 24 hrs: Microbiology 12/25/18 20:05 Aerobic Blood Culture - Preliminary Blood - Venous - Lab Draw NO GROWTH AFTER 3 DAYS Anaerobic Blood Culture - Preliminary NO GROWTH AFTER 3 DAYS 12/25/18 20:00 Aerobic Blood Culture - Preliminary Blood - Venous NO GROWTH AFTER 3 DAYS Anaerobic Blood Culture - Preliminary NO GROWTH AFTER 3 DAYS Med Orders - Current: Current Medications Acetaminophen (Tylenol) 650 mg PO Q6H PRN PRN Reason: Headache/Pain Last Admin: 12/29/18 03:48 Dose: 650 mg Alprazolam (Xanax) 0.5 mg PO BEDTIME [facility] Last Admin: 12/28/18 21:06 Dose: 0.5 mg Captopril (Capoten) 3.125 mg PO Q8H [facility] Last Admin: 12/29/18 03:49 Dose: 3.125 mg Docusate Sodium (Colace) 100 mg PO BID PRN PRN Reason: Constipation Last Admin: 12/27/18 13:35 Dose: 100 mg Enoxaparin Sodium (Lovenox) 30 mg SUBCUT DAILY [facility] Last Admin: 12/29/18 08:10 Dose: 30 mg Levofloxacin (Levaquin) 250 mg PO BEDTIME [facility] Last Admin: 12/28/18 21:06 Dose: 250 mg Miscellaneous Information (Remove Patch) 1 ea TRDERM DAILY [facility] Last Admin: 12/28/18 09:58 Dose: Not Given Miscellaneous Information (Remove Patch) 1 ea TRDERM DAILY [facility] Last Admin: 12/28/18 09:59 Dose: Not Given Nicotine (Habitrol) 7 mg TRDERM DAILY [facility] Last Admin: 12/28/18 09:57 Dose: Not Given Nicotine (Habitrol) 7 mg TRDERM DAILY [facility] Last Admin: 12/28/18 09:58 Dose: Not Given Ondansetron HCl (Zofran) 4 mg IVPUSH Q6H PRN PRN Reason: Nausea/Vomiting Last Admin: 12/26/18 20:02 Dose: 4 mg Sodium Chloride 5% 1 (Drop) 0 each EYEBOTH BID [facility] Last Admin: 12/28/18 21:08 Dose: Not Given Sertraline HCl (Zoloft) 100 mg PO DAILY [facility] Last Admin: 12/29/18 08:09 Dose: 100 mg Sodium Chloride (Saline Flush) 10 ml FLUSH ASDIRECTED PRN PRN Reason: Keep Vein Open Last Admin: 12/25/18 17:33 Dose: 10 ml Zolpidem Tartrate (Ambien) 5 mg PO BEDTIME [facility] Last Admin: 12/28/18 21:06 Dose: Not Given Discontinued Medications Captopril (Capoten) 3.125 mg PO Q8H [facility] Last Admin: 12/27/18 18:26 Dose: Not Given Furosemide (Lasix) 20 mg IVPUSH NOW ONE Stop: 12/27/18 10:11 Last Admin: 12/27/18 11:12 Dose: 20 mg Sodium Chloride (Normal Saline) 1,000 mls @ 150 mls/hr IV ASDIRECTED [facility] Last Admin: 12/25/18 17:33 Dose: 150 mls/hr Ceftriaxone Sodium 1 gm/ (Sodium Chloride) 100 mls @ 200 mls/hr IV ONETIME ONE Stop: 12/25/18 19:20 Last Admin: 12/25/18 18:58 Dose: 200 mls/hr Dextrose/Sodium Chloride (Dextrose 5%-Normal Saline) 1,000 mls @ 125 mls/hr IV ASDIRECTED [facility] Last Admin: 12/27/18 01:09 Dose: 125 mls/hr Levofloxacin/Dextrose 500 mg/ (Premix) 100 mls @ 100 mls/hr IV ONETIME ONE Stop: 12/25/18 20:29 Last Admin: 12/25/18 20:47 Dose: 100 mls/hr Magnesium Sulfate 2 gm/ Premix 50 mls @ 25 mls/hr IV ONETIME ONE Stop: 12/26/18 12:00 Last Admin: 12/26/18 10:47 Dose: 25 mls/hr Levofloxacin/Dextrose (Levaquin In D5w 250 Mg/50 Ml) 50 mls @ 50 mls/hr IV BEDTIME [facility] Last Admin: 12/27/18 20:29 Dose: 50 mls/hr Potassium Chloride (Potassium Chloride Solution) 60 meq PO ONETIME ONE Stop: 12/26/18 10:02 Last Admin: 12/26/18 10:47 Dose: 60 meq - Exam Physical Findings Comments:: General: lethargic, Cooperative. No: Oriented HEENT: Conjunctiva Clear, EOMI, Pupils Reactive Neck: Supple, Trachea Midline. No: JVD Lungs: Clear to Auscultation, Normal Respiratory Effort Cardiovascular: Regular Rate, Regular Rhythm, Systolic Murmur GI/Abdominal Exam: Normal Bowel Sounds, Soft, Non-Tender, No Organomegaly Extremities: No Pedal Edema. No: Joint Swelling Peripheral Pulses: 1+: Dorsalis Pedis (L), Dorsalis Pedis (R) Skin: Warm, Dry Neurological: Cranial Nerves Intact Neuro Extensive - Mental Status: Disorientation to Place, Disorientation to Time , Memory Loss-Recent Events, Slow Response to Commands Neuro Extensive - Motor, Sensory, Reflexes: No: Motor/Sensory Deficits
== END 2018-12-29 11:42 | DRG 690 ==
LOC: JD.ED 16:35 → JD.MS 18:49
PROVIDERS: ADMIT Internal Medicine; ATTEND Internal Medicine
DX: N39.0 Urinary tract infection, site not specified (principal); G30.9 Alzheimer's disease, unspecified; F02.80 Dementia in other diseases classified elsewhere, unspecified severity, without behavioral disturbance, psychotic disturbance, mood disturbance, and anxiety; R29.6 Repeated falls; R53.1 Weakness; R41.0 Disorientation, unspecified; R13.19 Other dysphagia; Z86.73 Personal history of transient ischemic attack (TIA), and cerebral infarction without residual deficits; K21.9 Gastro-esophageal reflux disease without esophagitis; F41.9 Anxiety disorder, unspecified; F32.9 Major depressive disorder, single episode, unspecified; H91.90 Unspecified hearing loss, unspecified ear; H54.7 Unspecified visual loss; Z88.8 Allergy status to other drugs, medicaments and biological substances; G93.89 Other specified disorders of brain; Z90.710 Acquired absence of both cervix and uterus
CPT/HCPCS: 36415; 70450; 80053; 81001; 84484; 85025; 93005; 96360; 96361; 99285; J7040; 80048; 80061; 82550; 83036; 83605; 83690; 83735; 83880; 84100; 84443; 85610; 85730; 87040; 87641; 93010; 93306; 97110-GP; 97116-GP; 97161-GP; 97530-GP; 99283; A9270-GY; J0696; J1650; J1956; J2405; J3475; J7030; J7042

== ENCOUNTER 2022-08-12 07:02 | Emergency (ER) | payer MEDICARE, OTHER, MEDICAID ==
[2022-08-12] MEDS ORDERED: Sodium Chloride 0.9% 10 ML Syringe FLUSH PRN (07:07)
[2022-08-12] MEDS ORDERED: Albuterol/Ipratropium 3.0-0.5 MG/3 ML Neb Soln NEB ONE (07:08)
[2022-08-12 08:02] LABS: ESTIMATED GFR 44 mL/min (>60)
[2022-08-12 08:15] LABS: CORONAVIRUS COVID-19 NAA NEGATIVE (NEGATIVE)
[2022-08-12] MEDS ORDERED: Morphine 4 MG/ML Syringe IVPUSH ONE ×2 (09:05→14:03)
[2022-08-12] MEDS ORDERED: LORazepam 2 MG/ML SDV IVPUSH ONE ×2 (09:05→14:04)
== END 2022-08-12 15:35 ==
LOC: JD.ED 07:02
DX: A41.9 Sepsis, unspecified organism (principal); J18.9 Pneumonia, unspecified organism; N30.00 Acute cystitis without hematuria; R09.02 Hypoxemia; R77.8 Other specified abnormalities of plasma proteins; K21.9 Gastro-esophageal reflux disease without esophagitis; R40.4 Transient alteration of awareness; Z88.8 Allergy status to other drugs, medicaments and biological substances; Z79.899 Other long term (current) drug therapy; Z20.822 Contact with and (suspected) exposure to COVID-19
CPT/HCPCS: 0241U; 36415; 36600; 51701; 70450; 71045; 80053; 81001; 82803; 83605; 84484; 85025; 86140; 87040; 93005; 94640; 94660; 96374; 96375; 96376; 99285; J2060; J2270; J3490; J7620-GY